=== PATIENT | female | born 1950 | race Caucasian/White ===

== ENCOUNTER → 2016-11-24 | Outpatient (CLI) | payer MEDICARE ==
[~2016-11-24] MED LIST: ACET-461 PO; AMLO5TAB2 PO; BNZ40T PO; CALC-80 PO; CALCIUM; CEPH500C PO; CIPR-226 PO; DIPH25TA82 PO; DOXY100C42 PO; GLUC1CAP37 PO; LACT1CAP62 PO; LEVO125T6 PO; LEVO137T17 PO; METR500T PO; OMEP20CA12 PO; SIMV20TA3 PO; SIMV40TA4 PO; SIMVAST; UBID10CA8; UBID1CAP51 PO; UBID200C PO; VITAMIN D; VITAMIN E; Vicodin 5/325 PO; simvastatin
--- NOTE | 2016-11-24 12:14 | Diagnostic Imaging Report ---
PROCEDURE: CT chest without contrast. TECHNIQUE: Multiple contiguous axial images were obtained through the chest without the use of intravenous contrast. INDICATION: Followup pulmonary nodules. COMPARISON: Comparison studies of 12/03/2015 and of 05/2014 are reviewed. FINDINGS: There are pulmonary nodules measuring up to 9 mm (noncalcified) in the right upper lobe and 1.7 cm in the right lower lobe with the right lower lobe nodule demonstrating calcification. There are several other calcified granulomas. This is likely related to prior granulomatous process including the noncalcified right upper lobe pulmonary nodule. There is no significant consolidation or lung mass seen. The heart size is normal. The thoracic aorta is normal in caliber. No mediastinal mass or lymphadenopathy. There are surgical clips seen around the upper mediastinum and in the thyroid bed region. Correlate for presumed prior thyroidectomy and other surgical history. No axillary lymphadenopathy. The osseous structures demonstrate degenerative changes in the mid and lower thoracic spine. Biliary air is noted similar to prior exams. Hypodense lesions in the liver up to 3.3 cm in size similar to prior exam is compatible with benign etiology, possibly hemangiomas. IMPRESSION: Stable right upper lobe and right lower lobe pulmonary nodules likely related to prior granulomatous process. Another followup in 12 months with an unenhanced low-dose protocol CT chest is recommended to prove stability over more than two years. Dictated by: Dictated on workstation # [id number]
== END ==
LOC: RAD 09:31
PROVIDERS: ATTEND Nurse Practitioner Family
DX: R91.8 Other nonspecific abnormal finding of lung field (principal)
CPT/HCPCS: 71250

== ENCOUNTER 2016-12-25 10:44 | Outpatient (RCR) | payer MEDICARE ==
[2016-12-25 11:09] LABS: BASOPHILS # (AUTO) 0.1 10^3/uL (0.0-0.1); BASOPHILS % (AUTO) 2 % (0-10); EOSINOPHILS # (AUTO) 0.4 10^3/uL (0.0-0.3); EOSINOPHILS % (AUTO) 6 % (0-10); LYMPHOCYTES # (AUTO) 1.5 X 10^3 (1.0-4.0); LYMPHOCYTES % (AUTO) 23 % (12-44); MEAN CORPUSCULAR HEMOGLOBIN 28 PG (25-34); MEAN CORPUSCULAR HGB CONC 33 G/DL (32-36); MEAN CORPUSCULAR VOLUME 86 FL (80-99); MEAN PLATELET VOLUME 11.5 FL (7.4-10.4); MONOCYTES # (AUTO) 0.5 X 10^3 (0.0-1.0); MONOCYTES % (AUTO) 8 % (0-12); NEUTROPHILS % (AUTO) 62 % (42-75); PLATELET COUNT 235 10^3/uL (130-400); RED BLOOD COUNT 4.68 10^6/uL (4.35-5.85); RED CELL DISTRIBUTION WIDTH 13.4 % (10.0-14.5); WHITE BLOOD COUNT 6.5 10^3/uL (4.3-11.0)
[2016-12-25 11:49] LABS: ALANINE AMINOTRANSFERASE 24 U/L (0-55); ALBUMIN 3.9 G/DL (3.2-4.5); ANION GAP 10 MMOL/L (5-14); ASPARTATE AMINO TRANSFERASE 19 U/L (5-34); BILIRUBIN,TOTAL 0.5 MG/DL (0.1-1.0); BLOOD UREA NITROGEN 15 MG/DL (7-18); BUN/CREATININE RATIO 18; CALCIUM 9.5 MG/DL (8.5-10.1); CARBON DIOXIDE 24 MMOL/L (21-32); CHLORIDE 107 MMOL/L (98-107); CREATININE SERUM 0.85 MG/DL (0.60-1.30); GFR ESTIMATED > 60; GLUCOSE 166 MG/DL (70-105); POTASSIUM 3.7 MMOL/L (3.6-5.0); SODIUM 141 MMOL/L (135-145); TOTAL PROTEIN 6.8 G/DL (6.4-8.2)
== END 2017-03-25 | disposition home or self-care (01) ==
LOC: ONC 10:44
PROVIDERS: ATTEND Internal Medicine Hematology & Oncology
DX: Z08 Encounter for follow-up examination after completed treatment for malignant neoplasm (principal); Z85.3 Personal history of malignant neoplasm of breast; I12.9 Hypertensive chronic kidney disease with stage 1 through stage 4 chronic kidney disease, or unspecified chronic kidney disease; N18.3 Chronic kidney disease, stage 3 (moderate); R91.1 Solitary pulmonary nodule; E89.0 Postprocedural hypothyroidism; M19.90 Unspecified osteoarthritis, unspecified site; E66.9 Obesity, unspecified; Z68.34 Body mass index [BMI] 34.0-34.9, adult; Z92.3 Personal history of irradiation; Z79.899 Other long term (current) drug therapy
CPT/HCPCS: 36415; 80053; 85025; 99213

== ENCOUNTER → 2017-05-11 | Outpatient (CLI) | payer MEDICARE ==
--- NOTE | 2017-05-11 20:02 | Diagnostic Imaging Report ---
Bilateral screening mammogram 2D views with tomosynthesis. The current study was also evaluated with a Computer Aided Detection (CAD) system. INDICATION: Screening. No current complaints stated on the questionnaire. COMPARISON: 05/09/16 FINDINGS: The breasts are composed of scattered fibroglandular densities. Scarring in the upper outer aspect of the right breast is again noted related to old lumpectomy. Allowing for technique and positional differences, no suspicious change is seen. IMPRESSION: No significant change. ACR BI-RADS Category 2: Benign findings. Result letter will be mailed to the patient. Note: At least 10% of breast cancer is not imaged by mammography. Dictated by: Dictated on workstation # [id number]
== END ==
LOC: RAD 09:40
PROVIDERS: ATTEND Internal Medicine Hematology & Oncology
DX: Z12.31 Encounter for screening mammogram for malignant neoplasm of breast (principal)
CPT/HCPCS: 77067

== ENCOUNTER → 2017-10-02 | Outpatient (CLI) | payer MEDICARE ==
--- NOTE | 2017-10-02 12:11 | Diagnostic Imaging Report ---
INDICATION: Cough and wheezing. TIME OF EXAM: 12:22 PM COMPARISON: Correlation is made with prior study from 06/20/2014. FINDINGS: Chronic mild elevation of the right hemidiaphragm is noted. The lungs are clear. Pulmonary vascularity is normal. No infiltrates are seen. No effusion or pneumothorax is identified. The heart size is stable. IMPRESSION: Stable chest. No acute cardiopulmonary process is detected. Dictated by: Dictated on workstation # [id number]
== END ==
LOC: RAD 11:43
PROVIDERS: ATTEND Family Medicine
DX: R05 Cough (principal)
CPT/HCPCS: 71046

== ENCOUNTER 2017-12-31 10:49 | Outpatient (RCR) | payer MEDICARE ==
[2017-12-31 10:59] LABS: BASOPHILS # (AUTO) 0.1 10^3/uL (0.0-0.1); BASOPHILS % (AUTO) 2 % (0-10); EOSINOPHILS # (AUTO) 0.4 10^3/uL (0.0-0.3); EOSINOPHILS % (AUTO) 5 % (0-10); HEMATOCRIT 42 % (35-52); LYMPHOCYTES # (AUTO) 1.6 X 10^3 (1.0-4.0); LYMPHOCYTES % (AUTO) 23 % (12-44); MEAN CORPUSCULAR HEMOGLOBIN 28 PG (25-34); MEAN CORPUSCULAR HGB CONC 33 G/DL (32-36); MEAN CORPUSCULAR VOLUME 86 FL (80-99); MEAN PLATELET VOLUME 11.4 FL (7.4-10.4); MONOCYTES # (AUTO) 0.5 X 10^3 (0.0-1.0); MONOCYTES % (AUTO) 7 % (0-12); NEUTROPHILS # (AUTO) 4.4 X 10^3 (1.8-7.8); NEUTROPHILS % (AUTO) 63 % (42-75); PLATELET COUNT 264 10^3/uL (130-400); RED BLOOD COUNT 4.95 10^6/uL (4.35-5.85); RED CELL DISTRIBUTION WIDTH 13.6 % (10.0-14.5)
[2017-12-31 11:28] LABS: ALANINE AMINOTRANSFERASE 16 U/L (0-55); ALBUMIN 4.1 GM/DL (3.2-4.5); ALKALINE PHOSPHATASE 33 U/L (40-136); BILIRUBIN,TOTAL 0.5 MG/DL (0.1-1.0); BUN/CREATININE RATIO 19; CALCIUM 9.8 MG/DL (8.5-10.1); CARBON DIOXIDE 21 MMOL/L (21-32); CHLORIDE 109 MMOL/L (98-107); CREATININE SERUM 0.81 MG/DL (0.60-1.30); GFR ESTIMATED > 60; GLUCOSE 125 MG/DL (70-105); SODIUM 142 MMOL/L (135-145); TOTAL PROTEIN 7.3 GM/DL (6.4-8.2)
== END 2018-03-31 | disposition home or self-care (01) ==
LOC: ONC 10:49
PROVIDERS: ATTEND Internal Medicine Hematology & Oncology
DX: Z08 Encounter for follow-up examination after completed treatment for malignant neoplasm (principal); Z85.3 Personal history of malignant neoplasm of breast; I12.9 Hypertensive chronic kidney disease with stage 1 through stage 4 chronic kidney disease, or unspecified chronic kidney disease; N18.3 Chronic kidney disease, stage 3 (moderate); R91.1 Solitary pulmonary nodule; E89.0 Postprocedural hypothyroidism; M19.90 Unspecified osteoarthritis, unspecified site; E66.9 Obesity, unspecified; Z68.34 Body mass index [BMI] 34.0-34.9, adult; Z92.3 Personal history of irradiation; Z79.899 Other long term (current) drug therapy
CPT/HCPCS: 36415; 80053; 85025; 99213

== ENCOUNTER → 2018-05-13 | Outpatient (CLI) | payer MEDICARE ==
--- NOTE | 2018-05-13 18:59 | Diagnostic Imaging Report ---
INDICATION: Routine screening. Comparison is made with prior mammogram from 05/11/2017 and 05/09/2016. 2-D and 3-D bilateral screening mammography was performed with CAD. The current study was also evaluated with a Computer Aided Detection (CAD) system. FINDINGS: Both breasts are heterogeneously dense, limiting the sensitivity of mammography. Postlumpectomy changes in the upper outer right breast are again noted. There is a new density noted in the superior right breast at mid depth best seen on the MLO view. No definite correlate is seen on the CC view. Additional views of this area recommended. The left breast is stable. No suspicious calcifications are seen. The axillae are unremarkable. IMPRESSION: Right breast density. Additional views including spot compression and ML views are recommended for further evaluation. ACR BI-RADS Category 0: Incomplete. (Needs additional imaging evaluation). Result letter will be mailed to the patient. Note: At least 10% of breast cancer is not imaged by mammography. Dictated by: Dictated on workstation # [id number]
== END ==
LOC: RAD 09:46
PROVIDERS: ATTEND Nurse Practitioner Adult Health
DX: Z12.31 Encounter for screening mammogram for malignant neoplasm of breast (principal); C50.411 Malignant neoplasm of upper-outer quadrant of right female breast
CPT/HCPCS: 77067

== ENCOUNTER → 2018-06-02 | Outpatient (CLI) | payer MEDICARE ==
--- NOTE | 2018-06-02 15:00 | Diagnostic Imaging Report ---
INDICATION: Right breast density. Patient presents for additional views. COMPARISON: Recent screening study from 05/13/2018. EXAMINATION: 2D and 3D unilateral right diagnostic mammography was performed including a 90 degree lateral view as well as a spot compression ML view. FINDINGS: There is some persistent mild slightly nodular density in the upper aspect of the right breast, approximately 4 cm from the nipple. No definite correlate was seen on the CC view but there could be a density directly behind the nipple. There are benign calcifications present. IMPRESSION: Persistent small nodular density in upper right breast, 4 cm from the nipple. Further evaluation of this area with ultrasound is recommended. ACR BI-RADS Category 0: Incomplete. (Needs additional imaging evaluation). Result letter will be mailed to the patient. Note: At least 10% of breast cancer is not imaged by mammography. Dictated by: Dictated on workstation # [id number]
--- NOTE | 2018-06-02 15:13 | Diagnostic Imaging Report ---
INDICATION: Abnormal mammogram demonstrating a right breast density. This study is performed for further evaluation. COMPARISON: Correlation is made with the diagnostic mammogram from earlier this same day and the screening mammogram from 05/13/2018. FINDINGS: Sonographic interrogation of the upper and outer aspect of the right breast was performed. There is a small hypoechoic nodule at the 11 o'clock location of the right breast 2 cm from the nipple. This nodule measures 5 mm x 5 mm x 6 mm. This may account for the mammographic density. No internal vascularity is seen. IMPRESSION: Indeterminate 5-6 mm nodule at the 11 o'clock location of the right breast 2 cm from the nipple, perhaps accounting for the density noted mammographically. Breast MRI would be recommended for further evaluation. ACR BI-RADS Category 0: Incomplete. (Needs additional imaging evaluation). Dictated by: Dictated on workstation # [id number]
== END ==
LOC: RAD 13:21
PROVIDERS: ATTEND Nurse Practitioner Adult Health
DX: C50.411 Malignant neoplasm of upper-outer quadrant of right female breast (principal); N63.41 Unspecified lump in right breast, subareolar

== ENCOUNTER → 2018-06-03 | Outpatient (CLI) | payer MEDICARE ==
[2018-06-03 15:26] LABS: BUN/CREATININE RATIO 19; GFR ESTIMATED > 60
== END ==
LOC: LAB 14:40
PROVIDERS: ATTEND Family Medicine
DX: N28.9 Disorder of kidney and ureter, unspecified (principal)
CPT/HCPCS: 36415; 82565; 84520

== ENCOUNTER → 2018-06-05 | Outpatient (CLI) | payer MEDICARE ==
[~2018-06-05] MED LIST changes: +GADOBUTROL 10 MMOL/10 ML (GADAVIST) VIAL IV ONE
--- NOTE | 2018-06-07 11:49 | Diagnostic Imaging Report ---
TECHNIQUE: Utilizing 1.5 Leigh Ann GE magnet, patient was placed in a prone position with 8-channel dual breast coil utilized. Axial STIR precontrasted image and axial T1 fat-sat postcontrast high-resolution images obtained. Sagittal T2-weighted images precontrast, bilaterally, as well. Sagittal vibrant temporal images were obtained pre and post contrast with bolus technique utilized of gadolinium. Images are postcontrast immediately and subsequently for 7 minutes. Pre and post contrasted images are then evaluated with WonderHowTo for evaluation of possible angiogenesis. INDICATION: Abnormal mammogram, personal history of breast cancer. COMPARISON: June 02, 2018, May 13, 2018, May 11, 2017, and May 07, 2015. Additionally, CT of the chest from March 01, 2015, PET/CT from June 27, 2014, and CT of the abdomen from June 19, 2014 also reviewed. FINDINGS: The bilateral breasts demonstrate mild background enhancement. Bilateral breasts demonstrate mild background glandularity. Postsurgical changes of a lumpectomy are again identified within the superior right breast, slightly lateral to the nipple line. 7 mm enhancing mass within the right breast near 12 o'clock corresponds to the lumpectomy cavity, which has decreased over prior mammograms. Three foci of enhancement are identified about the lumpectomy cavity. Two of these are seen within 5 mm of the lumpectomy cavity superolaterally. These are ovoid with circumscribed margins. These demonstrate progressive kinetics. The third asymmetry is slightly superomedial to the lumpectomy cavity by approximately 1 cm. This as well is ovoid with progressive kinetics. No additional suspicious mass or non-mass enhancement within the right breast. Small amount of enhancement is seen within the skin of the right breast near 12 o'clock, which is felt to be postsurgical in nature. No definite enhancing mass to correspond to previously questioned abnormality on mammography and ultrasound. A few scattered foci of enhancement are seen within the left breast without suspicious enhancing mass or non-mass enhancement. No significant axillary or internal mammary adenopathy. Rounded 9 mm enhancing lesion within the left aspect of the sternum is present. This appears unchanged from prior CT of the chest from 2014, therefore, this is benign. Lobulated 4.5 cm T2 hyperintense mass within the dome of the liver. This has increased in size since the prior examinations. No definite enhancement. Hiatal hernia is present. IMPRESSION: No MRI abnormality to correspond to the mammographic or sonographic abnormality. As the sonographic abnormality may correspond to mammographic abnormality though is not a definitive correlate, though the mammographic abnormality does appear to be a change from the prior examination, the mammographic abnormality is suspicious of malignancy. Therefore, stereotactic/tomographic guided biopsy is recommended for further evaluation. No evidence of malignancy within the left breast. Postsurgical changes within the superior right breast are identified. Adjacent enhancing foci are present which are likely postsurgical in nature and felt to be benign. Lobulated T2 hyperintensity within the dome of the liver, having increased in size since 2014. This is favored to relate to hemangioma. Prior PET/CT demonstrated no associated hypermetabolic activity. Hiatal hernia. BI-RADS Category 4: Suspicious of malignancy, biopsy is recommended. FOLLOWUP: Recommend stereotactic/tomographic guided biopsy of the mammographic abnormality within the right breast at 11-12 o'clock. Dictated by: Dictated on workstation # [id number]
== END ==
LOC: RAD 10:48
PROVIDERS: ATTEND Family Medicine
DX: K44.9 Diaphragmatic hernia without obstruction or gangrene (principal); R92.8 Other abnormal and inconclusive findings on diagnostic imaging of breast; Z98.890 Other specified postprocedural states; Z85.3 Personal history of malignant neoplasm of breast
CPT/HCPCS: 77059

== ENCOUNTER → 2018-06-21 | Outpatient (CLI) | payer MEDICARE ==
[~2018-06-21] VITALS: Ht 172.7 cm; Wt 86.2 kg
[~2018-06-21] MED LIST changes: -GADOBUTROL 10 MMOL/10 ML (GADAVIST) VIAL IV ONE; +LIDOCAINE 1% INJ 20 ML 20 ML VIAL INJ ONE
--- NOTE | 2018-06-21 10:52 | Diagnostic Imaging Report ---
INDICATION: Right breast density. Patient presents for stereotactic biopsy. TECHNIQUE: The patient was brought to the stereotactic suite and positioned in the unit in a sitting upright position. The right breast was positioned lateral medial. Imaging of the right breast was performed. The nodular density in the superior portion of the right breast at mid depth was stereotactically targeted. The breast was then prepped and draped in the usual sterile fashion. A small amount of 1% lidocaine was utilized for local anesthesia. An 8 gauge needle was advanced per stereotactic coordinates. A total of 4 marker clips was then deployed. The needle was removed and hemostasis was obtained using manual compression. Followup mammography imaging in the CC and ML plane demonstrates a clip in the mid right breast in the upper central portion. The patient tolerated the procedure well. IMPRESSION: Successful stereotactic biopsy of the nodular density in the right breast superiorly and slightly laterally. The Pathology results are currently pending. Dictated by: Dictated on workstation # [id number]
== END ==
LOC: RAD 09:15
PROVIDERS: ATTEND Nurse Practitioner Adult Health
DX: C50.411 Malignant neoplasm of upper-outer quadrant of right female breast (principal)
CPT/HCPCS: 19081; 88305; 88360

== ENCOUNTER → 2018-07-06 | Outpatient (CLI) | payer MEDICARE ==
[~2018-07-06] MED LIST changes: -LIDOCAINE 1% INJ 20 ML 20 ML VIAL INJ ONE
--- NOTE | 2018-07-06 12:57 | Diagnostic Imaging Report ---
EXAMINATION: PET/CT INDICATION: Breast cancer TECHNIQUE: PET/CT imaging was obtained from the base of the skull through the pelvis after the administration of 12.5 mCi of F-[address] imaging was utilized for localization and attenuation correction purposes. The low energy CT utilized for attenuation correction is not considered to be of high enough spatial resolution to allow in and of itself a separate anatomical analysis. The previous PET/CT exam performed on 06/27/2014 noted an intensely hypermetabolic right parotid mass measuring 2.7 CM. That mass is no longer evident on this study. There are a few small nodes posterior to the right parotid bed. The largest of these nodes measures 1.3 CM and has a maximum SUV of 2.5. These nodes are nonspecific in appearance however. The patient underwent a recent biopsy of the right breast and a diagnosis of invasive breast carcinoma was established. On this exam there does appear to be a stereotactic clip in the biopsy site. The maximum SUV in this area is only 1.6 however. There are few small slightly hypermetabolic nodes involving the right hilum and the mediastinum. The most intense of these nodes measures approximately 1 CM in size and is located in the superior mediastinum on the right at the level of the azygos vein. This has a maximum SUV of approximately 4.3. The other nodes involving the right hilum have SUV values in the 3.7-4.1 range. There is a 2.5 CM low density nodule in the dome of the right lobe of the liver. This finding was present on the prior PET/CT exam and did not appear to be hypermetabolic. There is still no hypoechoic activity associated with this lesion on this exam. There is another larger 7 x 3.5 CM area of diminished density in the right lobe of the liver. This does seem to have increased in size since the prior exam when it measured approximately 1.9 x 2.7 CM. There is no hypermetabolic activity associated with either of these findings. If further evaluation is desired, then CTA of the abdomen and pelvis with hemangioma protocol would be recommended. There is no other hypermetabolic activity to suggest the presence of neoplasm. The uterus is enlarged and there are multiple calcifications along the left lateral aspect of uterine body/fundus. These may be related to fibroid formation. The calcified nodule in the right lung base seen on the prior study is again evident and no different. There is also a small 8.4 mm nodule in the right upper lung. This also stable compared to the prior exam. Impression: 1. The area of hypermetabolic activity involving the right parotid gland seen previously is no longer evident. Correlation with the patient's surgical history would be Recommended. 2. There are post biopsy changes involving the right breast but there is no hypermetabolic activity in this area to suggest malignancy. 3. The areas of increased uptake in the superior mediastinum on the right and in the right hilum are suspicious but not conclusive for metastatic disease. 4. There is no other hypermetabolic activity to suggest the presence of neoplasm. 5. The rounded areas of low density in the right lobe of the Thyroid seen on the prior exam are of uncertain etiology although unlikely related to neoplasm. Recommendations as above. 6. The uterus is enlarged and there appear to be multiple calcified fibroid. Dictated by: Dictated on workstation # [id number]
== END ==
LOC: RAD 08:01
PROVIDERS: ATTEND Internal Medicine Hematology & Oncology
DX: C50.411 Malignant neoplasm of upper-outer quadrant of right female breast (principal); N85.2 Hypertrophy of uterus

== ENCOUNTER 2018-08-05 05:36 | Outpatient (CLI) | payer MEDICARE ==
[~2018-08-05] VITALS: Ht 172.7 cm; Wt 86.2 kg
[2018-08-05] MEDS ORDERED: LORA10TA7 PO (09:57)
[2018-08-05] MEDS ORDERED: OLME40TA12 PO (09:57)
[2018-08-05] MEDS ORDERED: UBID1CAP53 PO (09:57)
[2018-08-05] MEDS ORDERED: NAPR-915 PO (09:57)
[2018-08-05] MEDS ORDERED: ALPR0.25 PO (09:57)
[2018-08-05] MEDS ORDERED: ATOR10TA66 PO (09:57)
[2018-08-05] MEDS ORDERED: AMLO5TAB7 PO (09:57)
[2018-08-05] MEDS ORDERED: OMEP20CA12 PO (09:57)
[2018-08-05] MEDS ORDERED: LEVO150T6 PO (09:57)
[2018-08-05] MEDS ORDERED: LETR2.5T PO (09:57)
[2018-08-05] MEDS ORDERED: GLUC1CAP37 PO (09:57)
[2018-08-06] MEDS ORDERED: MONT10TA21 PO (10:12)
== END 2018-08-05 09:59 | disposition home or self-care (01) ==
LOC: PREOP 05:36
PROVIDERS: ATTEND Surgery
DX: Z01.818 Encounter for other preprocedural examination (principal)

== ENCOUNTER 2018-08-11 10:16 | Day surgery (SDC) | payer MEDICARE ==
--- NOTE | 2018-08-06 10:18 | NUR ---
HAD A LIST FAXED OVER FROM [facility]. I CALLED AND WENT OVER IT WITH THE PATIENT AND SHE VERIFIED HOW SHE TAKES THEM. [facility]ONS FILLED: 07-16-18 FEMARA 2.5MG DAILY #30 07-12-18 LEVOTHYROXINE 150MCG DAILY #90 07-12-18 NAPROXEN 500MG BID #180 07-09-18 LIPITOR 10MG HS #30 07-09-18 XANAX 0.25MG TID #63 06-10-18 AMLODIPINE 5MG DAILY #90 06-01-18 SINGULAIR 10MG DAILY #90 05-27-18 BENICAR 40MG DAILY #60 SHE TAKES THE FOLLOWING OTC: GLUCOSAMINE DAILY LORATADINE DAILY OMEPRAZOLE 20MG DAILY CO Q 10 BID
[~2018-08-11] VITALS: Ht 172.7 cm; Wt 86.4 kg
[~2018-08-11 10:16] MED LIST changes: +ALPR0.25 PO; +AMLO5TAB7 PO; +ATOR10TA66 PO; +LETR2.5T PO; +LEVO150T6 PO; +LORA10TA7 PO; +MONT10TA21 PO; +NAPR-915 PO; +OLME40TA12 PO; +UBID1CAP53 PO
[2018-08-11] MEDS ORDERED: LACTATED RINGERS 1,000 ML IV PRN (10:21)
[2018-08-11] MEDS ORDERED: VANCOMYCIN INJECTION 1,000 MG in NS (IVPB) 250 ML IV ONE (10:30)
--- NOTE | 2018-08-11 10:33 | Progress Note-Pre Operative ---
Pre-Operative Progress Note H&P Reviewed The H&P was reviewed, patient examined and no changes noted. Date Seen by Provider: Jul 28, 2018 Time Seen by Provider: 10:32 Date H&P Reviewed: Aug 11, 2018 Time H&P Reviewed: 10:32 Pre-Operative Diagnosis: Right breast carcinoma SHILO PARSON MD Aug 11, 2018 10:33
[2018-08-11 10:42] VITALS: BP 141/95
[2018-08-11] MEDS ORDERED: fentaNYL INJECTION 100 MCG/2 ML AMP ONE (11:19)
[2018-08-11] MEDS ORDERED: MIDAZOLAM 2 MG/2 ML (VERSED) VIAL ONE (11:19)
[2018-08-11] MEDS ORDERED: DEXAMETHASONE 10 MG/ML (DECADRON) 1 ML VIAL ONE (11:19)
[2018-08-11] MEDS ORDERED: proPOfol 200 MG/20 ML (DIPRIVAN) VIAL IV ONE (11:19)
[2018-08-11] MEDS ORDERED: ONDANSETRON 4 MG/2 ML (SDV) Z0FRAN ONE (11:19)
[2018-08-11] MEDS ORDERED: SEVOFLURANE (ULTANE) 15 ML INHAL SOLN ONE ×7 (11:19→15:08)
[2018-08-11] MEDS ORDERED: LIDOCAINE PF 2% 5 ML (XYLOCAINE) VIAL ONE (11:19)
[2018-08-11] MEDS ORDERED: BUPIVACAINE 0.5% 30 ML (SENSORCAINE) VIAL ONE (11:22)
[2018-08-11] MEDS ORDERED: LACTATED RINGERS 1,000 ML IV SCH (12:41)
[2018-08-11] MEDS ORDERED: ALPRAZolam 0.25 MG (XANAX) TAB PO PRN (12:45)
[2018-08-11] MEDS ORDERED: fentaNYL INJECTION 100 MCG/2 ML AMP IV PRN (12:45)
[2018-08-11] MEDS ORDERED: BUP/EPI 0.5% 1:200,000 (SENSORCAINE) 30 ML VIAL ONE (12:55)
[2018-08-11] MEDS ORDERED: PHENYLEPHRINE 100 MCG/ML 10 ML (ANESTHESIA) SYR ONE (13:27)
[2018-08-11] MEDS ORDERED: GLYCOPYRROLATE 0.2 MG/ML (ROBINUL) 2 ML VIAL ONE (14:16)
--- NOTE | 2018-08-11 14:41 | Operative Report ---
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 She had completed radiation therapy back then. Despite the small size of the current tumor, since further radiation was not feasible, mastectomy was felt to be the reasonable approach. Informed consent was obtained after reviewing the operative details and complications of hematoma, flap necrosis and wound infection. Description of the procedure: She was placed supine on the operative table and general anesthesia induced. A gram of vancomycin was administered intravenously as prophylaxis against wound infection. Sequential compression devices were placed around her legs, to minimize the risk of venous thrombosis. Right breast was prepared and draped in the usual sterile manner. An elliptical incision was made, incorporating the nipple-areolar complex and flaps were raised, superiorly to the level of the clavicle and inferiorly to the costal margin.. Breast tissue was excised down to the pectoralis fascia using Harmonic scalpel. The perforating branches of the internal mammary artery were controlled using a combination of ligaclips and Harmonic scalpel. The area was irrigated with saline and a 15 Turkish Boris-Zamorano drain left under the flaps, being secured using 2-0 silk sutures. The incision was then closed using 3-0 Vicryl for the dermal layer and 4-0 Vicryl for skin, in a subcuticular fashion. Steri-Strips and a non-adherent dressing were then applied. She tolerated the procedure well, was extubated in the operating room and taken to the recovery room in a stable condition. Findings of the Procedure see operative report Allergies and Home Medications Allergies Coded Allergies: Penicillins (Unverified Allergy, Unknown, 08/11/18) lactose (Verified Allergy, Unknown, 08/05/18) Home Medications Alprazolam 0.25 Mg Tablet, 0.25 MG PO TID PRN for ANXIETY, (Reported) Amlodipine Besylate 5 Mg Tablet, 5 MG PO DAILY, (Reported) Atorvastatin Calcium 10 Mg Tablet, 10 MG PO HS, (Reported) Glucosa Tariq 2Kcl/Chondroitin Tariq 1 Each Capsule, 1 CAP PO DAILY, (Reported) Letrozole 2.5 Mg Tab, 2.5 MG PO DAILY, (Reported) Levothyroxine Sodium 150 Mcg Tablet, 150 MCG PO DAILY, (Reported) Loratadine 10 Mg Tablet, 10 MG PO DAILY, (Reported) Montelukast Sodium 10 Mg Tablet, 10 MG PO HS, (Reported) Naproxen 500 Mg Tablet, 500 MG PO Q12H, (Reported) Olmesartan Medoxomil 40 Mg Tablet, 40 MG PO DAILY, (Reported) Omeprazole 20 Mg Capsule.dr, 20 MG PO DAILY, (Reported) Ubidecarenone/Vit E Acetate 1 Each Capsule, 100 MG PO BID, (Reported) Patient Home Medication List Home Medication List Reviewed: Yes SHILO PARSON MD Aug 11, 2018 14:40
[2018-08-11] MEDS ORDERED: ACHD5005 PO (14:42)
--- NOTE | 2018-08-11 14:43 | Discharge Inst-Simple/Standard ---
Discharge Inst-Standard Discharge Medications New, Converted or Re-Newed RX: RX on Chart Patient Instructions/Follow Up Plan of Care/Instructions/FU: please educate on managing JC at home and have her document output on a 24-hour basis quite accurately. Activity as Tolerated: Yes Discharge Diet: No Restrictions SHILO PARSON MD Aug 11, 2018 14:43
[2018-08-11] MEDS ORDERED: ENOX40DI13 SQ (14:44)
--- OUTSIDE RECORDS SUMMARY | 2018-08-11 14:53 | XMS REPORT | Clinical Summary ---
Author Author [facility] Organization [facility] Address Unknown Phone Unavailable Care Team Providers Care Watch Crystal Cutter Name Role Phone Joselo Jackson MD Unavailable Zelalem Carey DO PCP Ayala Darnell RN Unavailable Unavailable Yeimi Mooney RN Unavailable Unavailable Franca Tim RN Unavailable Unavailable Pedro Luis Benjamin PA-C Unavailable Eran Soto MD Unavailable Jessica Boston LPN Unavailable Unavailable Source Comments Some departments are not documenting in the electronic medical record. If you do not see the information that you expected, contact Release of Information in the Health Information Management department at [phone] for further assistance in locating additional records.[facility] Allergies Comments Active Allergy Reactions Severity Noted Date Penicillin G UNKNOWN 12/08/2013 Medications End Date Status Medication Sig Dispensed Refills Start Date Active benazepril (LOTENSIN) 40 Take 40 mg by 0 mg tablet mouth daily. Active simvastatin (ZOCOR) 20 mg Take 20 mg by 0 tablet mouth at bedtime daily. Active GLUCOSAM SUL NA/CHONDR AGUAYO Take 2 Tabs 0 A NA (GLUCOSAMINE & by mouth CHONDROIT SUL.NA PO) daily. Active OMEPRAZOLE PO Take 20 mg by 0 mouth as Needed. Active CALCIUM CARBONATE/VITAMIN Take 500 mg 0 D2 (CALCIUM + VITAMIN D by mouth PO) twice daily. Active lactobacillus rhamnosus Take 1 Cap by 0 (GG) (CULTURELLE) 10 mouth daily. billion cell cap Active coQ10 (ubiquinol) 100 mg Take 100 mg 0 cap by mouth twice daily. Active amLODIPine (NORVASC) 5 mg Take 5 mg by 0 tablet mouth daily. Active VITAMIN E (DL,TOCOPHERYL Take by 0 ACET) (VITAMIN E (DL, mouth. ACETATE) PO) Active loratadine 10 mg cap Take by 0 mouth daily. Active levothyroxine (SYNTHROID) 137 mcg 90 Tab 1 137 mcg tablet daily. 6 Active naproxen (NAPROSYN) 500 Take 500 mg 0 mg tablet by mouth daily. Take with food. Active LACTASE (LACTAID PO) Take by 0 mouth as Needed. 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 Overview: Microcarcinoma Resolved Problems Problem Noted Date Resolved Date Thyroid goiter 12/08/2013 07/13/2014 Parotid neoplasm 12/08/2013 07/13/2014 Family History Medical History Relation Name Comments Cancer-Colon Father Heart Attack Father Hypertension Father Cancer-Breast Mother Relation Name Status Comments Father Mother Social History Date Tobacco Use Types Packs/Day Years Used Quit: 07/27/1968 Former Smoker Cigarettes 0.1 2 Smokeless Tobacco: Never Used Comments: "3cigs/day socially" Alcohol Use Drinks/Week oz/Week Comments Yes 1 Glasses of 0.6 Rarely wine Sex Assigned at Date Recorded Not on file Industry Job Start Date Occupation Not on file Not on file Not on file Travel End Travel History Travel Start No recent travel history available. Last Filed Vital Signs Time Taken Vital Sign Reading 05/08/2016 4:00 PM CDT Blood Pressure 140/90 05/08/2016 3:22 PM CDT Pulse 84 07/06/2014 8:03 AM QA [employer] Temperature 36.6 C (97.9 F) - Respiratory Rate - 07/06/2014 8:03 AM QA [employer] Oxygen Saturation 94% - Inhaled Oxygen - Concentration 05/08/2016 3:22 PM CDT Weight 105.5 kg (232 lb 9.6 oz) 05/08/2016 3:22 PM CDT Height 172.7 cm (5' 8") 05/08/2016 3:22 PM CDT Body Mass Index 35.37 Plan of Treatment Health Maintenance Due Date Last Done Comments HEPATITIS C SCREENING 1949 PHYSICAL (COMPREHENSIVE) 1956 EXAM DTAP/TDAP VACCINES (1 - 1967 Tdap) BREAST CANCER SCREENING 1989 COLORECTAL CANCER 1999 SCREENING SHINGLES RECOMBINANT 1999 VACCINE (1 of 2) OSTEOPOROSIS 2014 SCREENING/MONITORING PNEUMONIA (PCV13/PPSV23) 2014 VACCINES (1 of 2 - PCV13) INFLUENZA VACCINE 02/24/2018 05/16/2013 (Previously completed) Results Not on filefrom Last 3 Months Insurance Payer Benefit Subscriber ID Type Phone Address Plan / Group MEDICARE MEDICARE xxxxxxxxxx Medicare PART A AND B Advance Directives Patient has advance care planning documents, and code status on file. For more information, please contact: [facility] [address] [place] [address] Date Inactivated Comments Code Status Date Activated 07/06/2014 10:40 AM Full Code 07/05/2014 5:47 PM Provider has discussed Code Status No, discussion not w/Patient or Family? necessary based on Dx 01/18/2014 4:28 PM Full Code 01/17/2014 2:47 PM Provider has discussed Code Status No, more discussion w/Patient or Family? needed
--- OUTSIDE RECORDS SUMMARY | 2018-08-11 14:55 | XMS REPORT | Continuity of Care Document ---
Author Author [facility] Organization [facility] Address Unknown Phone Unavailable Allergies Active Description Code Type Severity Reaction Onset Reported/Identified Relationship to Patient Clinical Status Yes Penicillins [id number] Drug Allergy Unknown N/A 06/19/2014 Yes lactose [id number] Drug Allergy Unknown N/A 08/05/2018 Medications There is no data. Problems Date Dx Coded Attending Type Code Diagnosis Diagnosed By 09/15/2010 Ot 276.8 09/15/2010 Ot 401.9 09/15/2010 Ot 786.59 09/15/2010 Ot V58.69 06/19/2014 Ot 174.9 06/19/2014 Ot 174.9 06/19/2014 Ot V15.3 06/19/2014 Ot V58.69 06/19/2014 Ot V87.41 06/19/2014 Ot 174.9 06/19/2014 Ot V07.4 06/19/2014 Ot V15.3 06/19/2014 Ot V82.81 06/19/2014 Ot V87.41 06/19/2014 Ot 174.9 06/19/2014 Ot 733.90 06/19/2014 Ot V58.69 06/19/2014 Ot 174.9 06/19/2014 Ot V76.11 06/19/2014 Ot 272.4 06/19/2014 Ot V10.3 06/19/2014 Ot V58.69 06/19/2014 Ot V67.1 06/19/2014 Ot V67.2 06/19/2014 Ot 174.9 06/19/2014 Ot V76.11 06/19/2014 Ot 789.00 06/19/2014 Ot 789.00 06/19/2014 Ot 790.5 06/19/2014 Ot 789.00 06/19/2014 Ot V10.3 06/19/2014 Ot V58.69 06/19/2014 Ot V67.1 06/19/2014 Ot V67.2 06/19/2014 Ot 174.9 06/19/2014 Ot V45.89 06/19/2014 Ot V76.11 06/19/2014 Ot 174.9 06/19/2014 ANNELZAID JEAN N Ot 174.9 06/19/2014 ZAID UP N Ot V76.11 06/19/2014 DARIANA MAYEN MD Ot 246.8 06/19/2014 TIARRA ORTEZ, DARIANA P Ot 784.2 06/19/2014 DARIANA MAYEN MD Ot 785.6 06/19/2014 ANNELZAID JEAN N Ot 174.9 06/19/2014 ANNELZAID JEAN N Ot 241.0 06/19/2014 ANNELZAID JEAN N Ot 403.90 06/19/2014 ANNELZAID JEAN N Ot 585.3 06/19/2014 ANNELZAID JEAN N Ot V58.69 06/19/2014 ANNELZAID JEAN N Ot 174.9 06/19/2014 ZAID UP N Ot V76.11 06/24/2014 JUSTO MCDERMOTT DO Ot 239.89 NEOPLASMS OF UNSPECIFIED NATURE, OTHER S 06/24/2014 JUSTO MCDERMOTT DO Ot 244.0 POSTSURGICAL HYPOTHYROID 06/24/2014 JUSTO MCDERMOTT DO Ot 271.3 DISACCHARIDASE DEF/MALAB 06/24/2014 JUSTO MCDERMOTT DO Ot 272.0 PURE HYPERCHOLESTEROLEM 06/24/2014 JUSTO MCDERMOTT DO Ot 401.9 HYPERTENSION NOS 06/24/2014 JUSTO MCDERMOTT DO Ot 530.81 ESOPHAGEAL REFLUX 06/24/2014 JUSTO MCDERMOTT DO Ot 557.9 VASC INSUFF INTEST NOS 06/24/2014 JUSTO MCDERMOTT DO Ot 562.10 DIVERTICULOSIS COLON (W/O MENT OF HEMORR 06/24/2014 JUSTO MCDERMOTT DO Ot 573.8 LIVER DISORDERS NEC 06/24/2014 JUSTO MCDERMOTT DO Ot 793.11 SOLITARY PULMONARY NODULE 06/24/2014 JUSTO MCDERMOTT DO Ot V10.3 HX OF BREAST MALIGNANCY 06/24/2014 JUSTO MCDERMOTT DO Ot V15.3 HX OF IRRADIATION 06/24/2014 JUSTO MCDERMOTT DO Ot V15.82 HISTORY OF TOBACCO USE 06/24/2014 JUSTO MCDERMOTT DO Ot V16.0 FAMILY HX-GI MALIGNANCY 06/24/2014 JUSTO MCDERMOTT DO Ot V87.41 PERSONAL HISTORY OF ANTINEOPLASTIC CHEMO 07/26/2014 RALPH SILVEIRA DO Ot 573.8 07/26/2014 RALPH SILVEIRA DO Ot 784.2 07/26/2014 RALPH SILVEIRA DO Ot 793.11 08/07/2014 SHILO PARSON MD Ot 211.3 BENIGN NEOPLASM LG BOWEL 08/07/2014 BLANK ORTEZ, SHILO Edwards Ot 455.3 EXT HEMORRHOID W/O COMPL 08/07/2014 SHILO PARSON MD Ot 557.9 VASC INSUFF INTEST NOS 08/07/2014 SHILO PARSON MD Ot 562.10 DIVERTICULOSIS COLON (W/O MENT OF HEMORR 11/08/2014 SHILO PARSON MD Ot 682.2 CELLULITIS OF TRUNK 11/08/2014 SHILO PARSON MD Ot V74.8 SCREEN-BACTERIAL DIS NEC 11/15/2014 SHILO PARSON MD Ot V72.84 11/15/2014 SHILO PARSON MD Ot V72.84 12/15/2014 ELADIO ORTEZ, DARIANA Anglin Ot 305.1 TOBACCO USE DISORDER 12/15/2014 DARIANA HENDRICKS MD Ot 401.9 HYPERTENSION NOS 12/15/2014 DARIANA HENDRICKS MD Ot 682.2 CELLULITIS OF TRUNK 12/15/2014 DARIANA HENDRICKS MD Ot 998.83 NON-HEALING SURG WOUND 01/17/2015 ZAID UP Ot 174.9 01/17/2015 ZAID UP N Ot 403.90 01/17/2015 ANNELZAID JEAN N Ot 585.3 01/17/2015 ANNELZAID JEAN N Ot V58.69 01/19/2015 ANNELZAID JEAN N Ot 174.9 01/19/2015 ANNELZAID JEAN N Ot 403.90 01/19/2015 ANNELZAID JEAN N Ot 585.3 01/19/2015 ZAID UP N Ot V58.69 04/03/2015 RALPH SILVEIRA DO Ot 174.9 04/03/2015 RALPH SILVEIRA DO Ot 278.00 04/03/2015 RALPH SILVEIRA DO Ot 793.11 04/12/2015 RALPH SILVEIRA DO Ot 174.9 04/12/2015 RALPH SILVEIRA DO Ot 278.00 04/12/2015 RALPH SILVEIRA DO Ot 793.11 05/31/2015 Ot C50.919 12/05/2015 EVY PADRON PATTERN STAMPER Ot R91.1 SOLITARY PULMONARY NODULE 12/27/2015 EVY PADRON PATTERN STAMPER Ot R91.1 SOLITARY PULMONARY NODULE 01/04/2016 EVY PADRON PATTERN STAMPER Ot R91.1 SOLITARY PULMONARY NODULE 02/14/2016 ANNEL, GABEAN N Ot C50.919 MALIGNANT NEOPLASM OF UNSP SITE OF UNSPE 02/21/2016 ANNEL, BOBAN N Ot C50.919 MALIGNANT NEOPLASM OF UNSP SITE OF UNSPE 03/25/2016 ANNEL, BOBAN N Ot C50.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 03/25/2016 ANNEL GABEAN N Ot C50.919 MALIGNANT NEOPLASM OF UNSP SITE OF UNSPE 03/25/2016 ANNEL, BOBAN N Ot E66.9 OBESITY, UNSPECIFIED 03/25/2016 ANNEL, BOBAN N Ot I12.9 HYPERTENSIVE CHRONIC KIDNEY DISEASE W ST 03/25/2016 ANNEL, BOBAN N Ot N18.3 CHRONIC KIDNEY DISEASE, STAGE 3 (MODERAT 03/25/2016 ANNEL, BOBAN N Ot R91.1 SOLITARY PULMONARY NODULE 03/25/2016 ANNEL, BOBAN N Ot Z68.35 BODY MASS INDEX (BMI) 35.0-35.9, ADULT 03/25/2016 ANNEL BOBAN N Ot Z79.899 OTHER CORRECTION (CURRENT) DRUG THERAPY 03/27/2016 ANNEL BOBAN N Ot C50.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 03/27/2016 ANNEL BOBAN N Ot E66.9 OBESITY, UNSPECIFIED 03/27/2016 ANNEL, BOBAN N Ot I12.9 HYPERTENSIVE CHRONIC KIDNEY DISEASE W ST 03/27/2016 ANNEL BOBAN N Ot N18.3 CHRONIC KIDNEY DISEASE, STAGE 3 (MODERAT 03/27/2016 ANNEL, BOBAN N Ot R91.1 SOLITARY PULMONARY NODULE 03/27/2016 ANNEL, BOBAN N Ot Z68.35 BODY MASS INDEX (BMI) 35.0-35.9, ADULT 03/27/2016 ZAID UP Ot Z79.899 OTHER CORRECTION (CURRENT) DRUG THERAPY 05/09/2016 Ot 174.9 MALIGN NEOPL BREAST NOS 05/09/2016 Ot V76.11 SCRN MAMMO- HIGH RISK PT, MALIGNANT NEOPL 05/09/2016 Ot 789.00 ABDOMINAL PAIN, UNSPECIFIED SITE 05/09/2016 Ot 789.00 ABDOMINAL PAIN, UNSPECIFIED SITE 05/09/2016 Ot 790.5 ABN SERUM ENZY LEVEL NEC 05/09/2016 Ot 789.00 ABDOMINAL PAIN, UNSPECIFIED SITE 05/09/2016 Ot V10.3 HX OF BREAST MALIGNANCY 05/09/2016 Ot V58.69 OTH MED,LT, CURRENT USE 05/09/2016 Ot V67.1 RADIOTHERAPY FOLLOW-UP 05/09/2016 Ot V67.2 CHEMOTHERAPY FOLLOW-UP 05/09/2016 Ot 174.9 MALIGN NEOPL BREAST NOS 05/09/2016 Ot V45.89 POSTSURGICAL STATES NEC 05/09/2016 Ot V76.11 SCRN MAMMO- HIGH RISK PT, MALIGNANT NEOPL 05/09/2016 Ot 174.9 MALIGN NEOPL BREAST NOS 05/09/2016 ZAID UP Ot 174.9 MALIGN NEOPL BREAST NOS 05/09/2016 ZAID UP Ot V76.11 SCRN MAMMO-HIGH RISK PT, MALIGNANT NEOPL 05/09/2016 TIARRA ORTEZ, DARIANA P Ot 246.8 DISORDERS OF THYROID NEC 05/09/2016 TIARRA ORTEZ, DARIANA Diaz Ot 784.2 SWELLING IN HEAD NECK 05/09/2016 TIARRA ORTEZ, DARIANA Diaz Ot 785.6 ENLARGEMENT LYMPH NODES 05/09/2016 ZAID UP Ot 174.9 MALIGN NEOPL BREAST NOS 05/09/2016 ZAID UP Ot 241.0 NONTOX UNINODULAR GOITER 05/09/2016 ZAID UP Ot 403.90 HYPTNSV CHR KID DIS, UNSPEC, W CHR KD ST 05/09/2016 ZAID UP Ot 585.3 CHRONIC KIDNEY DISEASE, STAGE III (MODER 05/09/2016 ZAID UP Ot V58.69 OTH MED,LT,CURRENT USE 05/09/2016 ANNEL, BOBAN N Ot 174.9 MALIGN NEOPL BREAST NOS 05/09/2016 ZAID UP N Ot V76.11 SCRN MAMMO-HIGH RISK PT, MALIGNANT NEOPL 05/09/2016 RALPH SILVEIRA DO Ot 573.8 LIVER DISORDERS NEC 05/09/2016 RALPH SILVEIRA DO Ot 784.2 SWELLING IN HEAD NECK 05/09/2016 RALPH SILVEIRA DO Ot 793.11 SOLITARY PULMONARY NODULE 05/09/2016 BLANK ORTEZ, SHILO Edwards Ot V72.84 EXAM PRE-OPERATIVE NOS 05/09/2016 RALPH SILVEIRA DO Ot 174.9 MALIGN NEOPL BREAST NOS 05/09/2016 RALPH SILVEIRA DO Ot 278.00 OBESITY, NOS 05/09/2016 RALPH SILVEIRA DO Ot 793.11 SOLITARY PULMONARY NODULE 05/09/2016 ZAID UP N Ot 174.9 MALIGN NEOPL BREAST NOS 05/09/2016 ZAID UP Ot 403.90 HYPTNSV CHR KID DIS, UNSPEC, W CHR KD ST 05/09/2016 ZAID UP N Ot 585.3 CHRONIC KIDNEY DISEASE, STAGE III (MODER 05/09/2016 ZAID UP N Ot V58.69 OTH MED,LT,CURRENT USE 05/09/2016 Ot C50.919 MALIGNANT NEOPLASM OF UNSP SITE OF UNSPE 05/09/2016 EVY PADRON APRN Ot R91.1 SOLITARY PULMONARY NODULE 05/09/2016 ZAID UP Ot C50.919 MALIGNANT NEOPLASM OF UNSP SITE OF UNSPE 05/09/2016 ZAID UP Ot Z12.31 ENCNTR SCREEN MAMMOGRAM FOR MALIGNANT NE 05/09/2016 ZAID UP N Ot Z12.31 ENCNTR SCREEN MAMMOGRAM FOR MALIGNANT NE 05/12/2016 ANNELZAID JEAN N Ot Z12.31 ENCNTR SCREEN MAMMOGRAM FOR MALIGNANT NE 05/13/2016 ZAID UP N Ot Z12.31 ENCNTR SCREEN MAMMOGRAM FOR MALIGNANT NE 05/14/2016 Ot C73 MALIGNANT NEOPLASM OF THYROID GLAND 05/14/2016 Ot C73 MALIGNANT NEOPLASM OF THYROID GLAND 05/15/2016 ZAID UP Ot Z12.31 ENCNTR SCREEN MAMMOGRAM FOR MALIGNANT NE 05/21/2016 ZAID UP Ot Z12.31 ENCNTR SCREEN MAMMOGRAM FOR MALIGNANT NE 2016 Ot C73 MALIGNANT NEOPLASM OF THYROID GLAND 06/13/2016 Ot C73 MALIGNANT NEOPLASM OF THYROID GLAND 11/24/2016 EVY PADRON PATTERN STAMPER Ot R91.1 SOLITARY PULMONARY NODULE 11/24/2016 EVY PADRON PATTERN STAMPER Ot R91.1 SOLITARY PULMONARY NODULE 11/24/2016 EVY PADRON PATTERN STAMPER Ot R91.1 SOLITARY PULMONARY NODULE 11/25/2016 VITOEVY LEON PATTERN STAMPER Ot R91.8 OTHER NONSPECIFIC ABNORMAL FINDING OF STEVEN 12/17/2016 VITOEVY LEON PATTERN STAMPER Ot R91.8 OTHER NONSPECIFIC ABNORMAL FINDING OF STEVEN 12/24/2016 EVY PADRON PATTERN STAMPER Ot R91.8 OTHER NONSPECIFIC ABNORMAL FINDING OF STEVEN 12/26/2016 ZAID UP Ot E66.9 OBESITY, UNSPECIFIED 12/26/2016 ZAID UP Ot E89.0 POSTPROCEDURAL HYPOTHYROIDISM 12/26/2016 ZAID UP Ot I12.9 HYPERTENSIVE CHRONIC KIDNEY DISEASE W ST 12/26/2016 ZAID UP Ot M19.90 UNSPECIFIED OSTEOARTHRITIS, UNSPECIFIED 12/26/2016 ZAID UP Ot N18.3 CHRONIC KIDNEY DISEASE, STAGE 3 (MODERAT 12/26/2016 ZAID UP Ot R91.1 SOLITARY PULMONARY NODULE 12/26/2016 ZAID UP Ot Z08 ENCNTR FOR FOLLOW-UP EXAM AFTER TRTMT FO 12/26/2016 ZAID UP Ot Z68.34 BODY MASS INDEX (BMI) 34.0-34.9, ADULT 12/26/2016 ZAID UP Ot Z79.899 OTHER CERTIFIED MEDICAL TECHNICIAN ASSISTANT (CURRENT) DRUG THERAPY 12/26/2016 ZAID UP Ot Z85.3 PERSONAL HISTORY OF MALIGNANT NEOPLASM O 12/26/2016 ZAID UP Ot Z92.3 PERSONAL HISTORY OF IRRADIATION 02/16/2017 ZAID UP Ot E66.9 OBESITY, UNSPECIFIED 02/16/2017 ZIAD UP Ot E89.0 POSTPROCEDURAL HYPOTHYROIDISM 02/16/2017 ZAID UP Ot I12.9 HYPERTENSIVE CHRONIC KIDNEY DISEASE W ST 02/16/2017 ZAID UP N Ot M19.90 UNSPECIFIED OSTEOARTHRITIS, UNSPECIFIED 02/16/2017 ZAID UP N Ot N18.3 CHRONIC KIDNEY DISEASE, STAGE 3 (MODERAT 02/16/2017 ZAID UP N Ot R91.1 SOLITARY PULMONARY NODULE 02/16/2017 ZAID UP N Ot Z08 ENCNTR FOR FOLLOW-UP EXAM AFTER TRTMT FO 02/16/2017 ZAID UP N Ot Z68.34 BODY MASS INDEX (BMI) 34.0-34.9, ADULT 02/16/2017 ZAID UP N Ot Z79.899 OTHER CERTIFIED MEDICAL TECHNICIAN ASSISTANT (CURRENT) DRUG THERAPY 02/16/2017 ZAID UP N Ot Z85.3 PERSONAL HISTORY OF MALIGNANT NEOPLASM O 02/16/2017 ZAID UP N Ot Z92.3 PERSONAL HISTORY OF IRRADIATION 02/20/2017 ZAID UP N Ot E66.9 OBESITY, UNSPECIFIED 02/20/2017 ZAID UP N Ot E89.0 POSTPROCEDURAL HYPOTHYROIDISM 02/20/2017 ZAID UP N Ot I12.9 HYPERTENSIVE CHRONIC KIDNEY DISEASE W ST 02/20/2017 ZAID UP N Ot M19.90 UNSPECIFIED OSTEOARTHRITIS, UNSPECIFIED 02/20/2017 ZAID UP N Ot N18.3 CHRONIC KIDNEY DISEASE, STAGE 3 (MODERAT 02/20/2017 ZAID UP N Ot R91.1 SOLITARY PULMONARY NODULE 02/20/2017 ZAID UP N Ot Z08 ENCNTR FOR FOLLOW-UP EXAM AFTER TRTMT FO 02/20/2017 ZAID UP N Ot Z68.34 BODY MASS INDEX (BMI) 34.0-34.9, ADULT 02/20/2017 ZAID UP N Ot Z79.899 OTHER CORRECTION (CURRENT) DRUG THERAPY 02/20/2017 ANNEL GABEJONELLE N Ot Z85.3 PERSONAL HISTORY OF MALIGNANT NEOPLASM O 02/20/2017 ANNEL GABEJONELLE N Ot Z92.3 PERSONAL HISTORY OF IRRADIATION 03/25/2017 ANNEL GABEJONELLE N Ot E66.9 OBESITY, UNSPECIFIED 03/25/2017 ANNEL GABEJONELLE N Ot E89.0 POSTPROCEDURAL HYPOTHYROIDISM 03/25/2017 ANNEL ZAID N Ot I12.9 HYPERTENSIVE CHRONIC KIDNEY DISEASE W ST 03/25/2017 ZAID UP N Ot M19.90 UNSPECIFIED OSTEOARTHRITIS, UNSPECIFIED 03/25/2017 ZAID UP N Ot N18.3 CHRONIC KIDNEY DISEASE, STAGE 3 (MODERAT 03/25/2017 ZAID UP N Ot R91.1 SOLITARY PULMONARY NODULE 03/25/2017 ZAID UP N Ot Z08 ENCNTR FOR FOLLOW-UP EXAM AFTER TRTMT FO 03/25/2017 ZAID UP N Ot Z68.34 BODY MASS INDEX (BMI) 34.0-34.9, ADULT 03/25/2017 ZAID UP N Ot Z79.899 OTHER CERTIFIED MEDICAL TECHNICIAN ASSISTANT (CURRENT) DRUG THERAPY 03/25/2017 ANNEL ZAID N Ot Z85.3 PERSONAL HISTORY OF MALIGNANT NEOPLASM O 03/25/2017 ANNEL ZAID N Ot Z92.3 PERSONAL HISTORY OF IRRADIATION 03/26/2017 ANNEL ZAID N Ot E66.9 OBESITY, UNSPECIFIED 03/26/2017 ANNEL GABEJONELLE N Ot E89.0 POSTPROCEDURAL HYPOTHYROIDISM 03/26/2017 ZAID UP N Ot I12.9 HYPERTENSIVE CHRONIC KIDNEY DISEASE W ST 03/26/2017 ZAID UP N Ot M19.90 UNSPECIFIED OSTEOARTHRITIS, UNSPECIFIED 03/26/2017 ZAID UP N Ot N18.3 CHRONIC KIDNEY DISEASE, STAGE 3 (MODERAT 03/26/2017 ZAID UP N Ot R91.1 SOLITARY PULMONARY NODULE 03/26/2017 ANNEL GABEJONELLE N Ot Z08 ENCNTR FOR FOLLOW-UP EXAM AFTER TRTMT FO 03/26/2017 ZAID UP Mercedes Ot Z68.34 BODY MASS INDEX (BMI) 34.0-34.9, ADULT 03/26/2017 ZAID UP N Ot Z79.899 OTHER CERTIFIED MEDICAL TECHNICIAN ASSISTANT (CURRENT) DRUG THERAPY 03/26/2017 ANNEL ZAID N Ot Z85.3 PERSONAL HISTORY OF MALIGNANT NEOPLASM O 03/26/2017 ANNEL ZAID N Ot Z92.3 PERSONAL HISTORY OF IRRADIATION 05/11/2017 ANNEL ZAID Long Ot Z12.31 ENCNTR SCREEN MAMMOGRAM FOR MALIGNANT NE 2017 ANNELZAID Ot Z12.31 ENCNTR SCREEN MAMMOGRAM FOR MALIGNANT NE 10/05/2017 GELLENDER DO, JUSTO A Ot R05 COUGH 10/27/2017 GELLENDER DO, JUSTO A Ot R05 COUGH 11/03/2017 GELLENDER DO, JUSTO A Ot R05 COUGH 02/15/2018 ANNELZAID Ot E66.9 OBESITY, UNSPECIFIED 02/15/2018 ANNELZAID N Ot E89.0 POSTPROCEDURAL HYPOTHYROIDISM 02/15/2018 ANNEL, ZAID N Ot I12.9 HYPERTENSIVE CHRONIC KIDNEY DISEASE W ST 02/15/2018 ANNEL, ZAID N Ot M19.90 UNSPECIFIED OSTEOARTHRITIS, UNSPECIFIED 02/15/2018 ANNEL, ZAID N Ot N18.3 CHRONIC KIDNEY DISEASE, STAGE 3 (MODERAT 02/15/2018 ANNELZAID JEAN N Ot R91.1 SOLITARY PULMONARY NODULE 02/15/2018 ANNELZAID JEAN N Ot Z08 ENCNTR FOR FOLLOW-UP EXAM AFTER TRTMT FO 02/15/2018 ZAID UP Ot Z68.34 BODY MASS INDEX (BMI) 34.0-34.9, ADULT 02/15/2018 ZAID UP N Ot Z79.899 OTHER CERTIFIED MEDICAL TECHNICIAN ASSISTANT (CURRENT) DRUG THERAPY 02/15/2018 ZAID UP N Ot Z85.3 PERSONAL HISTORY OF MALIGNANT NEOPLASM O 02/15/2018 ZAID UP N Ot Z92.3 PERSONAL HISTORY OF IRRADIATION 02/17/2018 ZAID UP N Ot E66.9 OBESITY, UNSPECIFIED 02/17/2018 ANNELZAID N Ot E89.0 POSTPROCEDURAL HYPOTHYROIDISM 02/17/2018 ZAID UP N Ot I12.9 HYPERTENSIVE CHRONIC KIDNEY DISEASE W ST 02/17/2018 ANNELZAID N Ot M19.90 UNSPECIFIED OSTEOARTHRITIS, UNSPECIFIED 02/17/2018 ANNEL, ZAID N Ot N18.3 CHRONIC KIDNEY DISEASE, STAGE 3 (MODERAT 02/17/2018 ANNELZAID JEAN N Ot R91.1 SOLITARY PULMONARY NODULE 02/17/2018 ANNELZAID JEAN N Ot Z08 ENCNTR FOR FOLLOW-UP EXAM AFTER TRTMT FO 02/17/2018 ZAID UP N Ot Z68.34 BODY MASS INDEX (BMI) 34.0-34.9, ADULT 02/17/2018 ZAID UP N Ot Z79.899 OTHER CERTIFIED MEDICAL TECHNICIAN ASSISTANT (CURRENT) DRUG THERAPY 02/17/2018 ZAID UP N Ot Z85.3 PERSONAL HISTORY OF MALIGNANT NEOPLASM O 02/17/2018 ZAID UP N Ot Z92.3 PERSONAL HISTORY OF IRRADIATION 03/31/2018 ZAID UP N Ot E66.9 OBESITY, UNSPECIFIED 03/31/2018 ZAID UP N Ot E89.0 POSTPROCEDURAL HYPOTHYROIDISM 03/31/2018 ZAID UP N Ot I12.9 HYPERTENSIVE CHRONIC KIDNEY DISEASE W ST 03/31/2018 ZAID UP N Ot M19.90 UNSPECIFIED OSTEOARTHRITIS, UNSPECIFIED 03/31/2018 ANNELZAID JEAN N Ot N18.3 CHRONIC KIDNEY DISEASE, STAGE 3 (MODERAT 03/31/2018 ZAID UP N Ot R91.1 SOLITARY PULMONARY NODULE 03/31/2018 ZAID UP N Ot Z08 ENCNTR FOR FOLLOW-UP EXAM AFTER TRTMT FO 03/31/2018 ZAID UP N Ot Z68.34 BODY MASS INDEX (BMI) 34.0-34.9, ADULT 03/31/2018 ZAID UP N Ot Z79.899 OTHER CERTIFIED MEDICAL TECHNICIAN ASSISTANT (CURRENT) DRUG THERAPY 03/31/2018 ZAID UP N Ot Z85.3 PERSONAL HISTORY OF MALIGNANT NEOPLASM O 03/31/2018 ZAID UP N Ot Z92.3 PERSONAL HISTORY OF IRRADIATION 04/02/2018 ZAID UP N Ot E66.9 OBESITY, UNSPECIFIED 04/02/2018 ZAID UP N Ot E89.0 POSTPROCEDURAL HYPOTHYROIDISM 04/02/2018 ZAID UP N Ot I12.9 HYPERTENSIVE CHRONIC KIDNEY DISEASE W ST 04/02/2018 ZAID UP N Ot M19.90 UNSPECIFIED OSTEOARTHRITIS, UNSPECIFIED 04/02/2018 ANNELZAID JEAN N Ot N18.3 CHRONIC KIDNEY DISEASE, STAGE 3 (MODERAT 04/02/2018 ANNELZAID JEAN N Ot R91.1 SOLITARY PULMONARY NODULE 04/02/2018 AZID UP N Ot Z08 ENCNTR FOR FOLLOW-UP EXAM AFTER TRTMT FO 04/02/2018 ZAID UP N Ot Z68.34 BODY MASS INDEX (BMI) 34.0-34.9, ADULT 04/02/2018 ZAID UP N Ot Z79.899 OTHER CERTIFIED MEDICAL TECHNICIAN ASSISTANT (CURRENT) DRUG THERAPY 04/02/2018 ZAID UP N Ot Z85.3 PERSONAL HISTORY OF MALIGNANT NEOPLASM O 04/02/2018 ANNEL GABEJONELLE N Ot Z92.3 PERSONAL HISTORY OF IRRADIATION 04/06/2018 ANNEL GABEJONELLE N Ot E66.9 OBESITY, UNSPECIFIED 04/06/2018 ANNEL ZAID N Ot E89.0 POSTPROCEDURAL HYPOTHYROIDISM 04/06/2018 ANNEL ZAID N Ot I12.9 HYPERTENSIVE CHRONIC KIDNEY DISEASE W ST 04/06/2018 ANNELZAID N Ot M19.90 UNSPECIFIED OSTEOARTHRITIS, UNSPECIFIED 04/06/2018 ANNELZAID N Ot N18.3 CHRONIC KIDNEY DISEASE, STAGE 3 (MODERAT 04/06/2018 ANNELZAID N Ot R91.1 SOLITARY PULMONARY NODULE 04/06/2018 ANNEL ZADI N Ot Z08 ENCNTR FOR FOLLOW-UP EXAM AFTER TRTMT FO 04/06/2018 ANNEL GABEJONELLE N Ot Z68.34 BODY MASS INDEX (BMI) 34.0-34.9, ADULT 04/06/2018 ZAID UP N Ot Z79.899 OTHER CORRECTION (CURRENT) DRUG THERAPY 04/06/2018 ZAID UP N Ot Z85.3 PERSONAL HISTORY OF MALIGNANT NEOPLASM O 04/06/2018 ANNEL GABEJONELLE N Ot Z92.3 PERSONAL HISTORY OF IRRADIATION 05/13/2018 ANNELZAID N Ot 174.9 MALIGN NEOPL BREAST NOS 05/13/2018 ZAID UP Ot V76.11 SCRN MAMMO-HIGH RISK PT, MALIGNANT NEOPL 05/13/2018 TIARRA ORTEZ, DARIANA P Ot 246.8 DISORDERS OF THYROID NEC 05/13/2018 DARIANA MAYEN MD P Ot 784.2 SWELLING IN HEAD NECK 05/13/2018 DARIANA MAYEN MD Ot 785.6 ENLARGEMENT LYMPH NODES 05/13/2018 ZAID UP N Ot 174.9 MALIGN NEOPL BREAST NOS 05/13/2018 ZAID UP N Ot 241.0 NONTOX UNINODULAR GOITER 05/13/2018 ZAID UP N Ot 403.90 HYPTNSV CHR KID DIS, UNSPEC, W CHR KD ST 05/13/2018 ANNEL, BOBAN N Ot 585.3 CHRONIC KIDNEY DISEASE, STAGE III (MODER 05/13/2018 ANNELZAID JEAN N Ot V58.69 OTH MED,LT,CURRENT USE 05/13/2018 ANNEL BOBAN N Ot 174.9 MALIGN NEOPL BREAST NOS 05/13/2018 ANNEL, BOBAN N Ot V76.11 SCRN MAMMO-HIGH RISK PT, MALIGNANT NEOPL 05/13/2018 RALPH SILVEIRA DO M Ot 573.8 LIVER DISORDERS NEC 05/13/2018 DERICK SILVEIRA DOSON M Ot 784.2 SWELLING IN HEAD NECK 05/13/2018 DERICK SILVEIRA DOSON M Ot 793.11 SOLITARY PULMONARY NODULE 05/13/2018 BLANK ORTEZ, SHILO Edwards Ot V72.84 EXAM PRE-OPERATIVE NOS 05/13/2018 DERICK SILVEIRA DOSON M Ot 174.9 MALIGN NEOPL BREAST NOS 05/13/2018 DERICK SILVEIRA DOSON M Ot 278.00 OBESITY, NOS 05/13/2018 RALPH SILVEIRA DO M Ot 793.11 SOLITARY PULMONARY NODULE 05/13/2018 ANNEL BOBJONELLE N Ot 174.9 MALIGN NEOPL BREAST NOS 05/13/2018 ANNEL BOBJONELLE N Ot 403.90 HYPTNSV CHR KID DIS, UNSPEC, W CHR KD ST 05/13/2018 ANNEL, BOBAN N Ot 585.3 CHRONIC KIDNEY DISEASE, STAGE III (MODER 05/13/2018 ZAID UP N Ot V58.69 OTH MED,LT,CURRENT USE 05/13/2018 Ot C50.919 MALIGNANT NEOPLASM OF UNSP SITE OF UNSPE 05/13/2018 EVY PADRON APRN Ot R91.1 SOLITARY PULMONARY NODULE 05/13/2018 EVY PADRON PATTERN STAMPER Ot R91.8 OTHER NONSPECIFIC ABNORMAL FINDING OF TSEVEN 05/13/2018 ZAID UP N Ot Z12.31 ENCNTR SCREEN MAMMOGRAM FOR MALIGNANT NE 05/13/2018 Ot C73 MALIGNANT NEOPLASM OF THYROID GLAND 05/13/2018 ZAID UP N Ot Z12.31 ENCNTR SCREEN MAMMOGRAM FOR MALIGNANT NE 05/13/2018 JUSTO MCDERMOTT DO Ot R05 COUGH 05/13/2018 MIGUELANGEL SILVA [employer] MARKETING MANAGER Ot Z12.31 ENCNTR SCREEN MAMMOGRAM FOR MALIGNANT NE 05/13/2018 ZAID UP Ot E66.9 OBESITY, UNSPECIFIED 05/13/2018 ZAID UP Ot E89.0 POSTPROCEDURAL HYPOTHYROIDISM 05/13/2018 ZAID UP Ot I12.9 HYPERTENSIVE CHRONIC KIDNEY DISEASE W ST 05/13/2018 ZAID UP Ot M19.90 UNSPECIFIED OSTEOARTHRITIS, UNSPECIFIED 05/13/2018 ZAID UP Ot N18.3 CHRONIC KIDNEY DISEASE, STAGE 3 (MODERAT 05/13/2018 ZAID UP Ot R91.1 SOLITARY PULMONARY NODULE 05/13/2018 ZIAD UP Ot Z08 ENCNTR FOR FOLLOW-UP EXAM AFTER TRTMT FO 05/13/2018 ZAID UP Ot Z68.34 BODY MASS INDEX (BMI) 34.0-34.9, ADULT 05/13/2018 ZAID UP Ot Z79.899 OTHER CERTIFIED MEDICAL TECHNICIAN ASSISTANT (CURRENT) DRUG THERAPY 05/13/2018 ZAID UP Ot Z85.3 PERSONAL HISTORY OF MALIGNANT NEOPLASM O 05/13/2018 ZAID UP Ot Z92.3 PERSONAL HISTORY OF IRRADIATION 05/17/2018 MIGUELANGEL SILVA [employer] MARKETING MANAGER Ot C50.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 05/17/2018 MIGUELANGEL SILVA [employer] MARKETING MANAGER Ot Z12.31 ENCNTR SCREEN MAMMOGRAM FOR MALIGNANT NE 05/19/2018 MIGUELANGEL SILVA [employer] MARKETING MANAGER Ot C50.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 05/19/2018 MIGUELANGEL SILVA [employer] MARKETING MANAGER Ot Z12.31 ENCNTR SCREEN MAMMOGRAM FOR MALIGNANT NE 2018 MIGUELANGEL SILVA [employer] MARKETING MANAGER Ot C50.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 2018 MIGUELANEGL SILVA [employer] MARKETING MANAGER Ot Z12.31 ENCNTR SCREEN MAMMOGRAM FOR MALIGNANT NE 06/04/2018 JUSTO MCDERMOTT DO Ot N28.9 DISORDER OF KIDNEY AND URETER, UNSPECIFI 06/07/2018 MIGUELANGEL SILVA [employer] MARKETING MANAGER Ot C50.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 06/07/2018 MIGUELANGEL SILVA [employer] MARKETING MANAGER Ot N63.41 UNSPECIFIED LUMP IN RIGHT BREAST, SUBARE 06/16/2018 MIGUELANGEL SILVA Ot R92.8 OTH ABN AND INCONCLUSIVE FINDINGS ON DX 06/21/2018 MIGUELANGEL SILVA Ot R92.8 OTH ABN AND INCONCLUSIVE FINDINGS ON DX 06/24/2018 SHARRON CONTRERAS, JUSTO William Ot N28.9 DISORDER OF KIDNEY AND URETER, UNSPECIFI 06/28/2018 MIGUELANGEL SILVA [employer] MARKETING MANAGER Ot C50.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 07/01/2018 SHARRON CONTRERAS, JUSTO William Ot K44.9 DIAPHRAGMATIC HERNIA WITHOUT OBSTRUCTION 07/01/2018 JUSTO MCDERMOTT DO Ot R92.8 OTH ABN AND INCONCLUSIVE FINDINGS ON DX 07/01/2018 JUSTO MCDERMOTT DO Ot Z85.3 PERSONAL HISTORY OF MALIGNANT NEOPLASM O 07/01/2018 JUSTO MCDERMOTT DO Ot Z98.890 OTHER SPECIFIED POSTPROCEDURAL STATES 07/08/2018 ZAID UP Ot C50.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 07/08/2018 ZAID UP Ot N85.2 HYPERTROPHY OF UTERUS 07/16/2018 MIGUELANGEL SILVA Victoria [employer] MARKETING MANAGER Ot C50.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 07/29/2018 ZAID UP Ot C50.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 07/29/2018 ZAID UP N Ot N85.2 HYPERTROPHY OF UTERUS 08/04/2018 ZAID UP Ot C50.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 08/04/2018 ZAID UP Ot N85.2 HYPERTROPHY OF UTERUS 08/05/2018 BLANK ORTEZ, SHILO Edwards Ot Z01.818 ENCOUNTER FOR OTHER PREPROCEDURAL EXAMIN Procedures Code Description Performed By Performed On 45.25 CLOSED ENDOSCOPIC BIOPSY OF LARGE INTEST 06/21/2014 Results Test Result Range [id number] - 06/03/18 14:54 Serum or plasma urea nitrogen measurement (mass/volume) 15 mg/dL 7-18 Serum or plasma creatinine measurement (mass/volume) 0.80 mg/dL 0.60-1.30 Serum or plasma urea nitrogen/creatinine mass ratio 19 NRG Serum or plasma creatinine measurement with calculation of estimated glomerular filtration rate > NRG Encounters ACCT No. Visit Date/Time Discharge Status Pt. Type Provider Facility Loc./Unit Complaint [id number] 08/05/2018 05:36:00 08/05/2018 09:59:00 DIS Outpatient SHILO PARSON MD [facility] PREOP RIGHT SIMPLE MASTECTOMY [id number] 07/06/2018 08:01:00 07/06/2018 23:59:59 CLS Outpatient ZAID UP [facility] RAD BREAST CANCER [id number] 06/28/2018 10:41:00 06/28/2018 23:59:59 CLS Outpatient ZAID UP [facility] ONC [id number] 06/21/2018 09:15:00 06/21/2018 23:59:59 CLS Outpatient MIGUELANGEL SILVA [facility] RAD ABNORMAL MAMMOGRAM, BREAST CANCER [id number] 06/05/2018 10:48:00 06/05/2018 23:59:59 CLS Outpatient JUSTO MCDERMOTT DO [facility] RAD ABN MAMMO [id number] 2018 14:40:00 2018 23:59:59 CLS Outpatient JUSTO MCDERMOTT DO [facility] LAB RENAL INSUFF [id number] 06/02/2018 13:45:00 06/02/2018 23:59:59 CLS Outpatient MIGUELANGEL SILVAP [facility] RAD ABN MAMMO [id number] 05/13/2018 09:46:00 05/13/2018 23:59:59 CLS Outpatient MIGUELANGEL SILVA [facility] RAD BREAST CANCER [id number] 12/31/2017 10:49:00 03/31/2018 00:01:00 DIS Outpatient ZAID UP [facility] ONC [id number] 10/02/2017 11:43:00 10/02/2017 23:59:59 CLS Outpatient JUSTO MCDERMOTT DO [facility] RAD R05 [id number] 05/11/2017 09:40:00 05/11/2017 23:59:59 CLS Outpatient ZAID UP [facility] RAD SCREENING [id number] 12/25/2016 10:44:00 03/25/2017 00:01:00 DIS Outpatient ZAID UP N [facility] ONC [id number] 11/24/2016 09:31:00 11/24/2016 23:59:59 CLS Outpatient EVY PADRON PATTERN STAMPER [facility] RAD LUNG NODULE [id number] 05/09/2016 09:38:00 05/09/2016 23:59:59 CLS Outpatient ZAID UP [facility] RAD SCREENING [id number] 12/26/2015 08:31:00 03/25/2016 00:01:00 DIS Outpatient ZAID UP [facility] ONC [id number] 12/03/2015 09:57:00 12/03/2015 23:59:59 CLS Outpatient EVY PADRON PATTERN STAMPER [facility] RAD LUNG NODULE [id number] 03/01/2015 09:16:00 03/01/2015 23:59:59 CLS Outpatient RALHP SILVEIRA DO [facility] RAD LUNG NODULE [id number] 12/25/2014 09:06:00 12/25/2014 23:59:59 CLS Outpatient ZAID UP Mercedes [facility] ONC [id number] 12/06/2014 08:21:00 12/15/2014 08:30:00 DIS Outpatient DARIANA HENDRICKS MD [facility] WOUNDCARE [id number] 11/08/2014 10:19:00 11/08/2014 15:30:00 DIS Outpatient SHILO PARSON MD [facility] ABDOMINAL ABSCESS [id number] 08/07/2014 06:39:00 08/07/2014 09:50:00 DIS Outpatient SHILO PARSON MD [facility] ISCHEMIC COLITIS [id number] 08/03/2014 05:49:00 08/03/2014 23:59:59 CLS Outpatient SHILO PARSON MD [facility] PREOP ISCHEMIC COLITIS [id number] 06/27/2014 12:25:00 06/27/2014 23:59:59 CLS Outpatient RALPH SILVEIRA DO [facility] RAD ABNORNMALITIES COLON AND LIVER [id number] 06/19/2014 11:56:00 06/24/2014 12:45:00 DIS Inpatient JUSTO MCDERMOTT DO [place] [facility] [address] GI BLE[address] CT ABNORMALITIES OF COLON LIVER [id number] 04/27/2014 09:40:00 04/27/2014 23:59:59 CLS Outpatient ZAID UP [facility] RAD SCREENING [id number] 11/07/2013 13:29:00 11/07/2013 23:59:59 CLS Outpatient ZAID UP [facility] ONC [id number] 10/04/2013 08:46:00 10/04/2013 23:59:59 CLS Outpatient TIARRA ORTEZ, DARIANA Diaz [facility] RAD ENLARGED PAROTID LYMPH NODE [id number] 04/25/2013 08:41:00 04/25/2013 23:59:59 CLS Outpatient ZAID UP [facility] RAD SCREENING [id number] 08/11/2018 10:16:00 ACT Outpatient BLANK ORTEZ, SHILO Edwards [facility] SDC RIGHT BREAST CARCINOMA [id number] 05/13/2016 09:26:00 Document Registration [id number] 05/08/2015 14:00:00 Document Registration [id number] 11/08/2012 09:06:00 Document Registration [id number] 04/22/2012 10:19:00 Document Registration [id number] 10/23/2011 15:27:00 Document Registration [id number] 06/11/2011 07:05:00 Document Registration [id number] 06/09/2011 07:08:00 Document Registration [id number] 06/04/2011 17:31:00 Document Registration [id number] 04/16/2011 06:55:00 Document Registration [id number] 10/21/2010 14:59:00 Document Registration [id number] 09/15/2010 05:47:00 Document Registration [id number] 04/15/2010 07:12:00 Document Registration [id number] 10/22/2009 15:12:00 Document Registration [id number] 08/31/2009 15:30:00 Document Registration [id number] 04/12/2009 06:56:00 Document Registration [id number] 03/19/2009 15:40:00 Document Registration
[2018-08-11] MEDS ORDERED: ONDANSETRON 4 MG/2 ML (SDV) Z0FRAN IVP PRN (15:15)
[2018-08-11] MEDS ORDERED: morphine INJ 10 MG/ML 1ML (SYR OR VIAL) IVP ONE (15:15)
[2018-08-11] MEDS ORDERED: HYDROmorphone 2 MG/ML VIAL (DILAUDID) IV ONE (15:15)
[2018-08-11] MEDS ORDERED: morphine INJ 10 MG/ML 1ML (SYR OR VIAL) ONE (15:20)
--- NOTE | 2018-08-11 16:15 | NUR ---
JANEE DAMONS ADMITTED TO ROOM 305 VIA PT BED ACC BY LISA TATE CST AFTER A RIGHT SIMPLE MASTECTOMY TODAY BY DR. PARSON. GUMAROJANEE S introduced to surroundings, call light, bed controls, phone, TV, temperature control, lights, meal times, smoking policy, visitor policy, side rail policy, bathrooms and showers. Patient Rights given to patient in the handbook.
[2018-08-11 16:18] VITALS: BP 154/78
[2018-08-11 16:20] VITALS: BP 131/72
--- NOTE | 2018-08-11 16:20 | NUR ---
O2 STARTED AT 2L/M/NC AFTER PT UNABLE TO MAINTAIN SPO2 ABOVE 90%. ASSESSMENT COMPLETED. PT'S SPOUSE HAD TO LEAVE HOSPITAL FOR AWHILE. CONTINUOUS SPO2 MONITORING. HRRR. BREATH SOUNDS CTA BILATERALLY. RIGHT CHEST WALL DRESSING D/I. JC CHARGED WITH SMALLL AMOUNT OF SANGUINOUS DRAINAGE. PT CLOSES EYES BUT CONVERSES WITHOUT DIFFICULTY. IV PLACED ON PUMP WITH NEW TUBING. CALF SCDS ON BILATERALLY.
--- NOTE | 2018-08-11 16:45 | NUR ---
RT NOTIFIED OF NEED FOR END TIDAL CO2 MONITORING. OBSERVING PT CLOSELY.
--- NOTE | 2018-08-11 16:53 | NUR ---
KENNEY ARREGUIN IN ROOM TO SET UP END TIDAL CO2 MONITORING.
[2018-08-11 17:03] VITALS: BP 143/72
--- NOTE | 2018-08-11 17:30 | NUR ---
ORDERED FOOD FOR PT. A/O X4. VSS.
[2018-08-11 17:45] VITALS: BP 138/81
[2018-08-11] MEDS: HYDROcodone/APAP 5 MG/325 MG (LORTAB) TAB PO PRN ×2 (17:55→22:02)
--- NOTE | 2018-08-11 17:55 | NUR ---
LORTAB 1 TAB P.O. FOR C/O INCISIONAL PAIN. SPOUSE HERE.
--- NOTE | 2018-08-11 18:05 | NUR ---
END TIDAL CO2 MONITORING D/C'ED. MACHINE REMAINS IN ROOM. DEMIAN RT NOTIFIED OF PT DOING BETTER AND MACHINE OFF BUT REMAINS IN ROOM.
--- NOTE | 2018-08-11 18:10 | NUR ---
UP TO THE BATHROOM. VOIDED 150 CC CLEAR YELLOW URINE. ASSISTED WITH PERICARE. ABLE TO AMBULATE WELL. CHEERFUL AFFECT.
--- NOTE | 2018-08-11 18:45 | NUR ---
HOME MEDICATIONS OBTAINED FROM PT.
--- NOTE | 2018-08-11 19:05 | NUR ---
DR. PARSON NOTIFIED OF NEED FOR ORDER FOR HOME MEDICATIONS. MEDS SENT TO PHARMACY.
[2018-08-11] MEDS ORDERED: PATIENT MAY USE OWN MEDS, ALL MC SCH (19:15)
[2018-08-11 19:45] VITALS: BP 121/62
[2018-08-11] MEDS: ceFAZolin 2 GM IV Premixed 50 ML IV SCH (20:42)
[2018-08-11] MEDS ORDERED: MONTELUKAST 10 MG (SINGULAIR) TAB PO SCH ×2 (21:00)
[2018-08-11] MEDS ORDERED: ATORVASTATIN 10 MG (LIPITOR) TABLET PO SCH ×2 (21:00)
[2018-08-11] MEDS ORDERED: CALCIUM CARBONATE 500 MG (TUMS) TAB.CHEW PO PRN (22:15)
[2018-08-12 00:30] VITALS: BP 128/76
[2018-08-12 04:51] VITALS: BP 152/78
[2018-08-12] MEDS: ceFAZolin 2 GM IV Premixed 50 ML IV SCH (04:51)
[2018-08-12] MEDS: HYDROcodone/APAP 5 MG/325 MG (LORTAB) TAB PO PRN (05:04)
[2018-08-12] MEDS ORDERED: LEVOTHYROXINE 150 MCG (LEVOTHROID) TAB PO SCH ×2 (06:30)
--- NOTE | 2018-08-12 07:05 | NUR ---
Dr. Maldonado called to check on pt, update given, new order rc'd to S.L. IV, will be in to see pt. this am.
--- NOTE | 2018-08-12 07:11 | Anesthesia-General Post-Op ---
General Patient Condition Mental Status/LOC: Same as Preop Cardiovascular: Satisfactory Nausea/Vomiting: Absent Respiratory: Satisfactory Pain: Controlled Complications: Absent Post Op Complications Complications None Follow Up Care/Instructions Patient Instructions None needed. Anesthesia/Patient Condition Patient Condition Patient is doing well, no complaints, stable vital signs, no apparent adverse anesthesia problems. No complications reported per nursing. D/C home per [facility] [place] Criteria: Yes EHSAN HEARN CRNA Aug 12, 2018 07:11
[2018-08-12 08:00] VITALS: BP 149/67
--- NOTE | 2018-08-12 08:20 | NUR ---
THIS RN INTRODUCES SELF TO PT AND SO AT THIS TIME. PHYSICAL ASSESSMENT COMPLETE. MEDICATIONS REVIEWED WITH PT. QUESTIONS ANSWERED. CALL LIGHT WITHIN REACH.
--- NOTE | 2018-08-12 08:58 | NUR ---
DR PARSON HERE AT BEDSIDE TO SEE PT.
[2018-08-12] MEDS ORDERED: amLODIPine 5 MG (NORVASC) TAB PO SCH ×2 (09:00)
[2018-08-12] MEDS ORDERED: LETROZOLE 2.5 MG (FEMARA) TAB PO SCH ×2 (09:00)
[2018-08-12] MEDS ORDERED: VALSARTAN 160 MG (DIOVAN) TABLET PO SCH (09:00)
[2018-08-12] MEDS ORDERED: PANTOPRAZOLE 20 MG TABLET (PROTONIX) PO SCH (09:00)
[2018-08-12] MEDS ORDERED: OLMESARTAN 40 MG PO SCH (09:00)
[2018-08-12] MEDS ORDERED: LORATADINE (CLARITIN) 10 MG TAB PO SCH (09:00)
--- NOTE | 2018-08-12 09:23 | NUR ---
DR PARSON TALKS WITH THIS RN ABOUT PLAN OF PT CARE. DC ORDER IN. PT WOULD LIKE TO GO HOME DANA. THIS RN WILL TEACH HOW TO EMPTY JC DRAIN TO PT. HAS TALKED TO PT ABOUT FOLLOW UP APPOINTMENTS & LOVENOX EDUCATION. WANTS TO ORDER ONE TIME DOSE OF 40 PROTONIX, THIS RN WILL PLACE ORDER AT THIS TIME. PRESCRIPTIONS ALREADY IN CHART.
[2018-08-12] MEDS ORDERED: PANTOPRAZOLE 40 MG (PROTONIX) TAB PO ONE (09:30)
--- NOTE | 2018-08-12 09:47 | Progress Note-Standard ---
Standard Progress Note Progress Notes/Assess & Plan Date Seen by a Provider: Aug 12, 2018 Time Seen by a Provider: 09:10 Progress/Assessment & Plan uneventful night. Reports heartburn and intravenous PPI would be administered. Minimal output from the drain. Vital signs stable. Pain control adequate. Could be discharged home. Reviewed the importance of using chemoprophylaxis with low molecular weight heparin to minimize the risk of postoperative venous thromboembolism. She'll be educated on the use this afternoon. Could be discharged this morning. Dressing change in my office tomorrow morning. Final Diagnosis recurrent carcinoma of right breast SHILO PARSON MD Aug 12, 2018 09:47
[2018-08-12] MEDS ORDERED: ENOXAPARIN 40 MG/0.4 ML (LOVENOX) SYR SC SCH (16:00)
== END 2018-08-12 10:50 | disposition home or self-care (01) ==
LOC: SDC 10:16 → WS 16:24 → SDC 08-12 10:50
PROVIDERS: ATTEND Surgery
DX: C50.411 Malignant neoplasm of upper-outer quadrant of right female breast (principal); Z17.0 Estrogen receptor positive status [ER+]; I12.9 Hypertensive chronic kidney disease with stage 1 through stage 4 chronic kidney disease, or unspecified chronic kidney disease; N18.9 Chronic kidney disease, unspecified; K21.9 Gastro-esophageal reflux disease without esophagitis; Z87.891 Personal history of nicotine dependence; Z79.899 Other long term (current) drug therapy
CPT/HCPCS: 87081; 94664; 94760

== ENCOUNTER 2018-08-22 13:30 | Emergency (ER) | payer MEDICARE ==
[~2018-08-22] VITALS: Ht 172.7 cm; Wt 87.1 kg
[~2018-08-22 13:30] MED LIST changes: +ACHD5005 PO; -AMLO5TAB7 PO; +AMLO5TAB9 PO; +ENOX40DI13 SQ
--- OUTSIDE RECORDS SUMMARY | 2018-08-22 13:35 | XMS REPORT | Clinical Summary ---
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 For more information, please contact: [facility] [address] [place] [address] Date Inactivated Comments Code Status Date Activated 07/06/2014 10:40 AM Full Code 07/05/2014 5:47 PM Provider has discussed Code Status No, discussion not w/Patient or Family? necessary based on Dx 01/18/2014 4:28 PM Full Code 01/17/2014 2:47 PM Provider has discussed Code Status No, more discussion w/Patient or Family? needed
--- OUTSIDE RECORDS SUMMARY | 2018-08-22 13:37 | XMS REPORT | Continuity of Care Document ---
Author Author [facility] Organization [facility] Address Unknown Phone Unavailable Allergies Active Description Code Type Severity Reaction Onset Reported/Identified Relationship to Patient Clinical Status Yes lactose [id number] Drug Allergy Unknown N/A 08/05/2018 Yes Penicillins [id number] Drug Allergy Unknown N/A 08/11/2018 Medications There is no data. 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 SOLITARY PULMONARY NODULE 02/14/2016 ANNEL, [...] 03/25/2016 ANNEL BOBAN N Ot Z79.899 OTHER HALFWAY (CURRENT) DRUG THERAPY 03/27/2016 ANNEL BOBAN N [...] ADULT 03/27/2016 ZAID UP Ot Z79.899 OTHER HALFWAY (CURRENT) DRUG THERAPY 05/09/2016 Ot 174.9 MALIGN [...] NEOPLASM OF THYROID GLAND 11/24/2016 EVY PADRON TYPE CASTER Ot R91.1 SOLITARY PULMONARY NODULE 11/24/2016 EVY PADRON TYPE CASTER Ot R91.1 SOLITARY PULMONARY NODULE 11/24/2016 EVY PADRON TYPE CASTER Ot R91.1 SOLITARY PULMONARY NODULE 11/25/2016 VITOEVY LEON TYPE CASTER Ot R91.8 OTHER NONSPECIFIC ABNORMAL FINDING OF STEVEN 12/17/2016 VITOEVY LEON TYPE CASTER Ot R91.8 OTHER NONSPECIFIC ABNORMAL FINDING OF STEVEN 12/24/2016 EVY PADRON TYPE CASTER Ot R91.8 OTHER NONSPECIFIC ABNORMAL FINDING OF [...] ADULT 12/26/2016 ZAID UP Ot Z79.899 OTHER JOB PLACEMENT OFFICER (CURRENT) DRUG THERAPY 12/26/2016 ZAID UP Ot Z85.3 PERSONAL HISTORY OF MALIGNANT NEOPLASM O 12/26/2016 ZAID UP Ot Z92.3 PERSONAL HISTORY OF IRRADIATION 02/16/2017 ZAID UP Ot E66.9 OBESITY, UNSPECIFIED 02/16/2017 ZAID UP Ot E89.0 POSTPROCEDURAL HYPOTHYROIDISM 02/16/2017 ZAID [...] 02/16/2017 ZAID UP N Ot Z79.899 OTHER JOB PLACEMENT OFFICER (CURRENT) DRUG THERAPY 02/16/2017 ZAID UP N [...] 02/20/2017 ZAID UP N Ot Z79.899 OTHER HALFWAY (CURRENT) DRUG THERAPY 02/20/2017 ANNEL GABEJONELLE N [...] 03/25/2017 ZAID UP N Ot Z79.899 OTHER JOB PLACEMENT OFFICER (CURRENT) DRUG THERAPY 03/25/2017 ANNEL ZAID N [...] 03/26/2017 ZAID UP N Ot Z79.899 OTHER JOB PLACEMENT OFFICER (CURRENT) DRUG THERAPY 03/26/2017 ANNEL ZAID N [...] 02/15/2018 ZAID UP N Ot Z79.899 OTHER JOB PLACEMENT OFFICER (CURRENT) DRUG THERAPY 02/15/2018 ZAID UP N [...] 02/17/2018 ZAID UP N Ot Z79.899 OTHER JOB PLACEMENT OFFICER (CURRENT) DRUG THERAPY 02/17/2018 ZAID UP N [...] 03/31/2018 ZAID UP N Ot Z79.899 OTHER JOB PLACEMENT OFFICER (CURRENT) DRUG THERAPY 03/31/2018 ZAID UP N Ot Z85.3 PERSONAL HISTORY OF MALIGNANT NEOPLASM O 03/31/2018 ZADI UP N Ot Z92.3 PERSONAL HISTORY OF [...] N Ot R91.1 SOLITARY PULMONARY NODULE 04/02/2018 ZAID UP N Ot Z08 ENCNTR FOR FOLLOW-UP EXAM AFTER TRTMT FO 04/02/2018 ZAID UP N Ot Z68.34 BODY MASS INDEX (BMI) 34.0-34.9, ADULT 04/02/2018 ZAID UP N Ot Z79.899 OTHER JOB PLACEMENT OFFICER (CURRENT) DRUG THERAPY 04/02/2018 ZAID UP N [...] Ot R91.1 SOLITARY PULMONARY NODULE 04/06/2018 ANNEL ZAID N Ot Z08 ENCNTR FOR FOLLOW-UP EXAM AFTER TRTMT FO 04/06/2018 ANNEL GABEJONELLE N Ot Z68.34 BODY MASS INDEX (BMI) 34.0-34.9, ADULT 04/06/2018 ZAID UP N Ot Z79.899 OTHER HALFWAY (CURRENT) DRUG THERAPY 04/06/2018 ZAID UP N [...] R91.1 SOLITARY PULMONARY NODULE 05/13/2018 EVY PADRON TYPE CASTER Ot R91.8 OTHER NONSPECIFIC ABNORMAL FINDING OF STEVEN 05/13/2018 ZAID UP N Ot Z12.31 ENCNTR SCREEN MAMMOGRAM FOR MALIGNANT NE 05/13/2018 Ot C73 MALIGNANT NEOPLASM OF THYROID GLAND 05/13/2018 ZAID UP N Ot Z12.31 ENCNTR SCREEN MAMMOGRAM FOR MALIGNANT NE 05/13/2018 JUSTO MCDERMOTT DO Ot R05 COUGH 05/13/2018 MIGUELANGEL SILVA APPLICATION PENETRATION TESTER Ot Z12.31 ENCNTR SCREEN MAMMOGRAM FOR MALIGNANT NE 05/13/2018 ZAID UP Ot E66.9 OBESITY, UNSPECIFIED 05/13/2018 ZAID UP Ot E89.0 POSTPROCEDURAL HYPOTHYROIDISM 05/13/2018 ZAID UP Ot I12.9 HYPERTENSIVE CHRONIC KIDNEY DISEASE W ST 05/13/2018 ZAID UP Ot M19.90 UNSPECIFIED OSTEOARTHRITIS, UNSPECIFIED 05/13/2018 ZIAD UP Ot N18.3 CHRONIC KIDNEY DISEASE, STAGE 3 (MODERAT 05/13/2018 ZAID UP Ot R91.1 SOLITARY PULMONARY NODULE 05/13/2018 ZAID UP Ot Z08 ENCNTR FOR FOLLOW-UP EXAM AFTER TRTMT FO 05/13/2018 ZAID UP Ot Z68.34 BODY MASS INDEX (BMI) 34.0-34.9, ADULT 05/13/2018 ZAID UP Ot Z79.899 OTHER JOB PLACEMENT OFFICER (CURRENT) DRUG THERAPY 05/13/2018 ZAID PU Ot Z85.3 PERSONAL HISTORY OF MALIGNANT NEOPLASM O 05/13/2018 ZAID UP Ot Z92.3 PERSONAL HISTORY OF IRRADIATION 05/17/2018 MIGUELANGEL SILVA APPLICATION PENETRATION TESTER Ot C50.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 05/17/2018 MIGUELANGEL SILVA APPLICATION PENETRATION TESTER Ot Z12.31 ENCNTR SCREEN MAMMOGRAM FOR MALIGNANT NE 05/19/2018 MIGUELANGEL SILVA APPLICATION PENETRATION TESTER Ot C50.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 05/19/2018 MIGUELANGEL SILVA APPLICATION PENETRATION TESTER Ot Z12.31 ENCNTR SCREEN MAMMOGRAM FOR MALIGNANT NE 2018 MIGUELANGEL SILVA APPLICATION PENETRATION TESTER Ot C50.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 2018 MIGUELANGEL SILVA APPLICATION PENETRATION TESTER Ot Z12.31 ENCNTR SCREEN MAMMOGRAM FOR MALIGNANT NE 06/04/2018 JUSTO MCDERMOTT DO Ot N28.9 DISORDER OF KIDNEY AND URETER, UNSPECIFI 06/07/2018 MIGUELANGEL SILVA APPLICATION PENETRATION TESTER Ot C50.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 06/07/2018 MIGUELANGEL SILVA APPLICATION PENETRATION TESTER Ot N63.41 UNSPECIFIED LUMP IN RIGHT BREAST, SUBARE 06/16/2018 MIGUELANGEL SILVA APPLICATION PENETRATION TESTER Ot R92.8 OTH ABN AND INCONCLUSIVE FINDINGS ON DX 06/21/2018 MIGUELANGEL SILVA APPLICATION PENETRATION TESTER Ot R92.8 OTH ABN AND INCONCLUSIVE FINDINGS ON DX 06/24/2018 SHARRON CONTRERAS, JUSTO William Ot N28.9 DISORDER OF KIDNEY AND URETER, UNSPECIFI 06/28/2018 MIGUELANGEL SILVA APPLICATION PENETRATION TESTER Ot C50.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 07/01/2018 SHARRON CONTRERAS, JUSTO William Ot K44.9 DIAPHRAGMATIC HERNIA WITHOUT OBSTRUCTION 07/01/2018 SHARRON CONTRERAS, JUSTO William Ot R92.8 OTH ABN AND INCONCLUSIVE FINDINGS ON DX 07/01/2018 JUSTO MCDERMOTT DO Ot Z85.3 PERSONAL HISTORY OF MALIGNANT NEOPLASM O 07/01/2018 JUSTO MCDERMOTT DO Ot Z98.890 OTHER SPECIFIED POSTPROCEDURAL STATES 07/08/2018 ZAID UP N Ot C50.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 07/08/2018 ZAID UP N Ot N85.2 HYPERTROPHY OF UTERUS 07/16/2018 SILVAMIGUELANGEL Kessler APPLICATION PENETRATION TESTER Ot C50.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 07/29/2018 ZAID UP N Ot C50.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 07/29/2018 ZAID UP N Ot N85.2 HYPERTROPHY OF UTERUS 08/04/2018 ZAID UP N Ot C50.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 08/04/2018 ZAID UP N Ot N85.2 HYPERTROPHY OF UTERUS 08/05/2018 BLANK ORTEZ, SHILO Edwards Ot Z01.818 ENCOUNTER FOR OTHER PREPROCEDURAL EXAMIN 08/16/2018 BLANK ORTEZ, SHILO Edwards Ot C50.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 08/16/2018 BLANK ORTEZ, SHILO Edwards Ot I12.9 HYPERTENSIVE CHRONIC KIDNEY DISEASE W ST 08/16/2018 BLANK ORTEZ, SHILO Edwards Ot K21.9 GASTRO-ESOPHAGEAL REFLUX DISEASE WITHOUT 08/16/2018 BLANK ORTEZ, SHILO Edwards Ot N18.9 CHRONIC KIDNEY DISEASE, UNSPECIFIED 08/16/2018 SHILO PARSON MD, Ot Z17.0 ESTROGEN RECEPTOR POSITIVE STATUS [ER+] 08/16/2018 SHILO PARSON MD Ot Z79.899 OTHER JOB PLACEMENT OFFICER (CURRENT) DRUG THERAPY 08/16/2018 SHILO PARSON MD Ot Z87.891 PERSONAL HISTORY OF NICOTINE DEPENDENCE 08/18/2018 SHILO PARSON MD Ot C50.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 08/18/2018 SHILO PARSON MD, Ot I12.9 HYPERTENSIVE CHRONIC KIDNEY DISEASE W ST 08/18/2018 SHILO PARSON MD, Ot K21.9 GASTRO-ESOPHAGEAL REFLUX DISEASE WITHOUT 08/18/2018 SHILO PARSON MD, Ot N18.9 CHRONIC KIDNEY DISEASE, UNSPECIFIED 08/18/2018 SHILO PARSON MD, Ot Z17.0 ESTROGEN RECEPTOR POSITIVE STATUS [ER+] 08/18/2018 SHILO PARSON MD, Ot Z79.899 OTHER HALFWAY (CURRENT) DRUG THERAPY 08/18/2018 SHILO PARSON MD, Ot Z87.891 PERSONAL HISTORY OF NICOTINE DEPENDENCE Procedures Code Description Performed By Performed On 45.25 CLOSED ENDOSCOPIC BIOPSY OF LARGE INTEST 06/21/2014 Results Test Result Range [id number] - 06/03/18 14:54 Serum or plasma urea nitrogen measurement (mass/volume) 15 mg/dL 7-18 Serum or plasma creatinine measurement (mass/volume) 0.80 mg/dL 0.60-1.30 Serum or plasma urea nitrogen/creatinine mass ratio 19 NRG Serum or plasma creatinine measurement with calculation of estimated glomerular filtration rate > NRG Methicillin resistant Staphylococcus aureus (MRSA) screening culture - 10:28 Methicillin resistant Staphylococcus aureus (MRSA) screening culture NEG NRG Encounters ACCT No. Visit Date/Time Discharge Status Pt. Type Provider Facility Loc./Unit Complaint [id number] 08/19/2018 08:49:00 08/19/2018 23:59:59 CLS Outpatient ZAID UP [facility] ONC [id number] 08/11/2018 10:16:00 08/12/2018 10:50:00 DIS Outpatient SHILO PARSON MD [facility] SDC RIGHT BREAST CARCINOMA [id number] 08/05/2018 05:36:00 08/05/2018 09:59:00 DIS Outpatient BLANK ORTEZ, SHILO Edwards [facility] PREOP RIGHT SIMPLE MASTECTOMY [id number] 07/06/2018 08:01:00 07/06/2018 23:59:59 CLS Outpatient ZAID UP [facility] RAD BREAST CANCER [id number] 06/21/2018 09:15:00 06/21/2018 23:59:59 CLS Outpatient MIGUELANGEL SILVAP [facility] RAD ABNORMAL MAMMOGRAM, BREAST CANCER [id number] 06/05/2018 10:48:00 06/05/2018 23:59:59 CLS Outpatient JUSTO MCDERMOTT DO [facility] RAD ABN MAMMO [id number] 2018 14:40:00 2018 23:59:59 CLS Outpatient JUSTO MCDERMOTT DO [facility] LAB RENAL INSUFF [id number] 06/02/2018 13:45:00 06/02/2018 23:59:59 CLS Outpatient MIGUELANGEL SILVA APPLICATION PENETRATION TESTER [facility] RAD ABN MAMMO [id number] 05/13/2018 09:46:00 05/13/2018 23:59:59 CLS Outpatient MIGUELANGEL SILVA APPLICATION PENETRATION TESTER [facility] RAD BREAST CANCER [id number] 12/31/2017 10:49:00 03/31/2018 00:01:00 DIS Outpatient ZAID UP [facility] ONC [id number] 10/02/2017 11:43:00 10/02/2017 23:59:59 CLS Outpatient JUSTO MCDERMOTT DO [facility] RAD R05 [id number] 05/11/2017 09:40:00 05/11/2017 23:59:59 CLS Outpatient ZAID UP [facility] RAD SCREENING [id number] 12/25/2016 10:44:00 03/25/2017 00:01:00 DIS Outpatient ZAID UP [facility] ONC [id number] 11/24/2016 09:31:00 11/24/2016 23:59:59 CLS Outpatient EVY PADRON TYPE CASTER [facility] RAD LUNG NODULE [id number] 05/09/2016 09:38:00 05/09/2016 23:59:59 CLS Outpatient ZAID UP [facility] RAD SCREENING [id number] 12/26/2015 08:31:00 03/25/2016 00:01:00 DIS Outpatient ZAID UP [facility] ONC [id number] 12/03/2015 09:57:00 12/03/2015 23:59:59 CLS Outpatient EVY PADRON TYPE CASTER [facility] RAD LUNG NODULE [id number] 03/01/2015 09:16:00 03/01/2015 23:59:59 CLS Outpatient RALPH SILVEIRA DO [facility] RAD LUNG NODULE [id number] 12/25/2014 09:06:00 12/25/2014 23:59:59 CLS Outpatient ZAID UP [facility] ONC [id number] 12/06/2014 08:21:00 12/15/2014 08:30:00 DIS Outpatient DARIANA HENDRICKS MD [facility] WOUNDCARE [id number] 11/08/2014 10:19:00 11/08/2014 15:30:00 DIS Outpatient SHILO PARSON MD [facility] ABDOMINAL ABSCESS [id number] 08/07/2014 06:39:00 08/07/2014 09:50:00 DIS Outpatient SHILO PARSON MD [facility] ISCHEMIC COLITIS [id number] 08/03/2014 05:49:00 08/03/2014 23:59:59 CLS Outpatient SHILO PARSON MD [facility] PREOP ISCHEMIC COLITIS [id number] 06/27/2014 12:25:00 06/27/2014 23:59:59 CLS Outpatient RALPH SILVEIRA DO [facility] RAD ABNORNMALITIES COLON AND LIVER [id number] 06/19/2014 11:56:00 06/24/2014 12:45:00 DIS Inpatient GELLENDER DO, JUSTO A [facility] 4[address] GI BLEED CT ABNORMALITIES OF COLON LIVER [id number] 04/27/2014 09:40:00 04/27/2014 23:59:59 CLS Outpatient ZAID UP [facility] RAD SCREENING [id number] 11/07/2013 13:29:00 11/07/2013 23:59:59 CLS Outpatient ZAID UP Mercedes [facility] ONC [id number] 10/04/2013 08:46:00 10/04/2013 23:59:59 CLS Outpatient DARIANA MAYEN MD [facility] RAD ENLARGED PAROTID LYMPH NODE [id number] 04/25/2013 08:41:00 04/25/2013 23:59:59 CLS Outpatient ZAID UP [facility] RAD SCREENING [id number] 05/13/2016 09:26:00 Document Registration [id number] 05/08/2015 14:00:00 Document Registration [id number] 11/08/2012 09:06:00 Document Registration [id number] 04/22/2012 10:19:00 Document Registration [id number] 10/23/2011 15:27:00 Document Registration [id number] 06/11/2011 07:05:00 Document Registration [id number] 06/09/2011 07:08:00 Document Registration [id number] 06/04/2011 17:31:00 Document Registration [id number] 04/16/2011 06:55:00 Document Registration [id number] 10/21/2010 14:59:00 Document Registration [id number] 09/15/2010 05:47:00 Document Registration [id number] 04/15/2010 07:12:00 Document Registration [id number] 10/22/2009 15:12:00 Document Registration [id number] 08/31/2009 15:30:00 Document Registration [id number] 04/12/2009 06:56:00 Document Registration [id number] 03/19/2009 15:40:00 Document Registration
--- NOTE | 2018-08-22 14:11 | ED General ---
General Chief Complaint: General Problems/Pain Stated Complaint: DRAIN ISSUES Nursing Triage Note: Pt had right mastectomy on 08/11/2018 and had drain put in. Pt stated about one hour ago the drain has not been draining. Nursing Sepsis Screen: No Definite Risk Source of Information: Patient Exam Limitations: No Limitations History of Present Illness Date Seen by Provider: Aug 22, 2018 Time Seen by Provider: 14:05 Initial Comments To ER with reports that the JC drain at the site of right mastectomy is not holding vacuum for about one hour now. She had a right mastectomy for right breast carcinoma by Dr. Parson on 08/11/18. She had a 44 cc of slightly bloody yellowish drainage out yesterday she states. Timing/Duration: 1 Hour Severity: Mild Allergies and Home Medications Allergies Coded Allergies: Penicillins (Unverified Allergy, Unknown, 08/11/18) lactose (Verified Allergy, Unknown, 08/05/18) Home Medications Alprazolam 0.25 Mg Tablet, 0.25 MG PO TID PRN for ANXIETY, (Reported) Amlodipine Besylate 5 Mg Tablet, 5 MG PO DAILY, (Reported) Atorvastatin Calcium 10 Mg Tablet, 10 MG PO HS, (Reported) Enoxaparin Sodium 40 Mg/0.4 Ml Syringe, 40 MG SQ DAILY Prescribed by: SHILO PARSON on 08/11/18 1444 Glucosa Tariq 2Kcl/Chondroitin Tariq 1 Each Capsule, 1 CAP PO DAILY, (Reported) Hydrocodone Bit/Acetaminophen 1 Tab Tab, 1 TAB PO Q6H PRN for PAIN-MODERATE Prescribed by: SHILO PARSON on 08/11/18 1442 Letrozole 2.5 Mg Tab, 2.5 MG PO DAILY, (Reported) Levothyroxine Sodium 150 Mcg Tablet, 150 MCG PO DAILY, (Reported) Loratadine 10 Mg Tablet, 10 MG PO DAILY, (Reported) Montelukast Sodium 10 Mg Tablet, 10 MG PO HS, (Reported) Naproxen 500 Mg Tablet, 500 MG PO Q12H, (Reported) Olmesartan Medoxomil 40 Mg Tablet, 40 MG PO DAILY, (Reported) Omeprazole 20 Mg Capsule.dr, 20 MG PO DAILY, (Reported) Ubidecarenone/Vit E Acetate 1 Each Capsule, 100 MG PO BID, (Reported) Patient Home Medication List Home Medication List Reviewed: Yes Review of Systems Review of Systems Constitutional: see HPI EENTM: see HPI Respiratory: no symptoms reported Cardiovascular: no symptoms reported Genitourinary: no symptoms reported Musculoskeletal: no symptoms reported Skin: see HPI Psychiatric/Neurological: No Symptoms Reported Hematologic/Lymphatic: No Symptoms Reported Past Ewttdzj-Ciqfke-Jtrhjs Hx Patient Social History Alcohol Use: Denies Use Recreational Drug Use: No Former Smoker, Quit: Aug 11, 1968 2nd Hand Smoke Exposure: No Recent Foreign Travel: No Contact w/Someone Who Travel: No Recent Infectious Disease Expo: No Recent Hopitalizations: No Physical Abuse: No Sexual Abuse: No Mistreated: No Fear: No Immunizations Up To Date Date of Pneumonia Vaccine: Jun 07, 2014 Date of Influenza Vaccine: Jun 07, 2018 Seasonal Allergies Seasonal Allergies: Yes Past Medical History Surgeries: Yes (BUNION, PAROTID GLAND, LUMPECTOMY) Breast, Gallbladder, Orthopedic, Thyroidectomy Respiratory: No Cardiac: Yes Hypertension Neurological: No Reproductive Disorders: No Female Reproductive Disorders: Denies Sexually Transmitted Disease: No HIV/AIDS: No Genitourinary: No Gastrointestinal: Yes (lactose intolerant) Gastrointestinal Bleed Musculoskeletal: No Endocrine: Yes (THYROIDECTOMY FOR GOITER) HEENT: No (currently thinks she has pink eye) Cancer: Yes Breast What Type of Treatment Did You: Chemotherapy, Radiation, Surgical Intervention Psychosocial: No Integumentary: No Blood Disorders: No Family Medical History Cardiovascular disease Colon cancer Hypertension Physical Exam Vital Signs Vital Signs - First Documented 08/22/18 13:51 Temp 98.3 Pulse 91 Resp 18 B/P (MAP) 143/96 (112) Pulse Ox 97 O2 Delivery Room Air Capillary Refill : Less Than 3 Seconds Height, Weight, BMI Height: 5'8.00" Weight: 192lbs. 0oz. [id number]; 29.0 BMI Method:Stated General Appearance: No Apparent Distress, WD/WN Eyes: Bilateral Eye Normal Inspection, Bilateral Eye PERRL HEENT: PERRL/EOMI, TMs Normal Respiratory: No Accessory Muscle Use, No Respiratory Distress Gastrointestinal: Non Tender, Soft Neurologic/Psychiatric: Alert, Oriented x3, No Motor/Sensory Deficits Skin: Normal Color, Warm/Dry, Other (there is no erythema or drainage at the insertion site where the JC drain enters the skin. However, to the ports in the side of the tubing which would normally be used to aspirate fluid or actually outside of the skin and thus the drain tubing is no longer functional. I spoke with Dr. Parson, recommends completely removing the JC tubing, he'll call the patient tomorrow for follow-up instructions.) Progress/Results/Core Measures Suspected Sepsis Recent Fever Within 48 Hours: No Infection Criteria Present: None New/Unexplained Altered Menta: No Sepsis Screen: No Definite Risk SIRS Temperature:98.3 Pulse: 91 Respiratory Rate: 18 Blood Pressure 143 /96 Mean: 112 Results/Orders Vital Signs/I&O 08/22/18 13:51 Temp 98.3 Pulse 91 Resp 18 B/P (MAP) 143/96 (112) Pulse Ox 97 O2 Delivery Room Air Capillary Refill : Less Than 3 Seconds Blood Pressure Mean: 112 Departure Impression Primary Impression: Dislodged Boris-Zamorano drain Disposition: HOME, SELF-CARE Condition: Stable Departure-Patient Inst. Decision time for Depature: 14:10 Referrals: JUSTO MCDERMOTT DO (PCP/Family) Primary Care Physician Patient Instructions: Wound Care Add. Discharge Instructions: 1. Dr. Mendoza will call you tomorrow with additional instructions. If he does not call by noon and then you may call his office as well. Return to ER for any concerns. Keep this puncture site covered with gauze as you will continue to have some oozing of the same type of drainage from this site for the next few days. Copy Copies To 1: SHILO PARSON MD, PETER J APRN Aug 22, 2018 14:11
[2018-08-22 14:21] VITALS: BP 145/85
== END 2018-08-22 14:21 | disposition home or self-care (01) ==
LOC: EDUNIT# 13:30 → ER 13:31
DX: T85.698A Other mechanical complication of other specified internal prosthetic devices, implants and grafts, initial encounter (principal); I10 Essential (primary) hypertension; K21.9 Gastro-esophageal reflux disease without esophagitis; Z92.21 Personal history of antineoplastic chemotherapy; Z82.49 Family history of ischemic heart disease and other diseases of the circulatory system; Z80.0 Family history of malignant neoplasm of digestive organs; Z90.11 Acquired absence of right breast and nipple; Z88.0 Allergy status to penicillin; Z88.8 Allergy status to other drugs, medicaments and biological substances; Z85.3 Personal history of malignant neoplasm of breast; Z87.891 Personal history of nicotine dependence; Z98.890 Other specified postprocedural states; Z90.89 Acquired absence of other organs
CPT/HCPCS: 99281

== ENCOUNTER 2018-09-09 08:25 | Outpatient (RCR) | payer MEDICARE | END 2018-09-26 | disposition home or self-care (01) | LOC: ONC 08:25 | PROVIDERS: ATTEND Internal Medicine Hematology & Oncology | DX: C50.411 Malignant neoplasm of upper-outer quadrant of right female breast (principal) | CPT/HCPCS: 99213 ==

== ENCOUNTER 2018-12-02 08:39 | Outpatient (RCR) | payer MEDICARE ==
[~2018-12-02 08:39] MED LIST changes: +OMEP20CA13 PO
[2018-12-02 09:02] LABS: BASOPHILS # (AUTO) 0.1 10^3/uL (0.0-0.1); BASOPHILS % (AUTO) 1 % (0-10); EOSINOPHILS # (AUTO) 0.3 10^3/uL (0.0-0.3); EOSINOPHILS % (AUTO) 4 % (0-10); HEMATOCRIT 39 % (35-52); HEMOGLOBIN 12.9 G/DL (11.5-16.0); LYMPHOCYTES # (AUTO) 1.8 X 10^3 (1.0-4.0); LYMPHOCYTES % (AUTO) 29 % (12-44); MEAN CORPUSCULAR HEMOGLOBIN 29 PG (25-34); MEAN CORPUSCULAR HGB CONC 33 G/DL (32-36); MEAN CORPUSCULAR VOLUME 87 FL (80-99); MEAN PLATELET VOLUME 11.5 FL (7.4-10.4); MONOCYTES # (AUTO) 0.5 X 10^3 (0.0-1.0); MONOCYTES % (AUTO) 8 % (0-12); NEUTROPHILS # (AUTO) 3.5 X 10^3 (1.8-7.8); NEUTROPHILS % (AUTO) 57 % (42-75); PLATELET COUNT 224 10^3/uL (130-400); RED CELL DISTRIBUTION WIDTH 12.8 % (10.0-14.5); WHITE BLOOD COUNT 6.1 10^3/uL (4.3-11.0)
[2018-12-02 09:23] LABS: ALBUMIN 4.2 GM/DL (3.2-4.5); BILIRUBIN,TOTAL 0.5 MG/DL (0.1-1.0); CALCIUM 9.5 MG/DL (8.5-10.1); CREATININE SERUM 0.93 MG/DL (0.60-1.30); POTASSIUM 3.8 MMOL/L (3.6-5.0)
== END 2019-03-02 | disposition home or self-care (01) ==
LOC: ONC 08:39
PROVIDERS: ATTEND Internal Medicine Hematology & Oncology
DX: C50.411 Malignant neoplasm of upper-outer quadrant of right female breast (principal)
CPT/HCPCS: 36415; 80053; 85025; 99213

== ENCOUNTER → 2019-04-11 | Outpatient (CLI) | payer MEDICARE | LOC: LAB 08:45 | PROVIDERS: ATTEND Family Medicine | DX: E78.5 Hyperlipidemia, unspecified (principal); E03.9 Hypothyroidism, unspecified | CPT/HCPCS: 36415; 80061; 84443 ==

== ENCOUNTER → 2019-05-16 | Outpatient (CLI) | payer MEDICARE ==
[~2019-05-16] MED LIST changes: +OMEP-280 PO; -OMEP20CA13 PO
--- NOTE | 2019-05-16 10:40 | Diagnostic Imaging Report ---
INDICATION: Routine screening. COMPARISON: 05/13/2018 and 05/11/2017. TECHNIQUE: 2D and 3D unilateral left screening mammography was performed with CAD. FINDINGS: Scattered fibroglandular densities in the left breast are noted. The parenchymal pattern is stable. No mass or malignant appearing microcalcifications are seen. There are benign calcifications. The left axilla is unremarkable. IMPRESSION: No mammographic features suspicious for malignancy are identified. ACR BI-RADS Category 2: Benign findings. Result letter will be mailed to the patient. Note: At least 10% of breast cancer is not imaged by mammography. Dictated by: Dictated on workstation # [id number]
== END ==
LOC: RAD 07:24
PROVIDERS: ATTEND Internal Medicine Hematology & Oncology
DX: Z12.31 Encounter for screening mammogram for malignant neoplasm of breast (principal); C50.919 Malignant neoplasm of unspecified site of unspecified female breast

== ENCOUNTER 2019-07-05 08:43 | Outpatient (RCR) | payer MEDICARE ==
[2019-04-11 09:00] LABS: BASOPHILS # (AUTO) 0.1 10^3/uL (0.0-0.1); BASOPHILS % (AUTO) 1 % (0-10); EOSINOPHILS # (AUTO) 0.1 10^3/uL (0.0-0.3); EOSINOPHILS % (AUTO) 3 % (0-10); HEMATOCRIT 41 % (35-52); HEMOGLOBIN 13.1 G/DL (11.5-16.0); LYMPHOCYTES # (AUTO) 1.6 X 10^3 (1.0-4.0); LYMPHOCYTES % (AUTO) 32 % (12-44); MEAN CORPUSCULAR HEMOGLOBIN 29 PG (25-34); MEAN CORPUSCULAR HGB CONC 32 G/DL (32-36); MEAN CORPUSCULAR VOLUME 89 FL (80-99); MEAN PLATELET VOLUME 11.4 FL (7.4-10.4); MONOCYTES # (AUTO) 0.4 X 10^3 (0.0-1.0); MONOCYTES % (AUTO) 9 % (0-12); NEUTROPHILS # (AUTO) 2.9 X 10^3 (1.8-7.8); NEUTROPHILS % (AUTO) 56 % (42-75); PLATELET COUNT 232 10^3/uL (130-400); RED CELL DISTRIBUTION WIDTH 12.3 % (10.0-14.5); WHITE BLOOD COUNT 5.1 10^3/uL (4.3-11.0)
[2019-04-11 09:23] LABS: ALBUMIN 4.3 GM/DL (3.2-4.5); BILIRUBIN,TOTAL 0.6 MG/DL (0.1-1.0); CALCIUM 9.6 MG/DL (8.5-10.1); CREATININE SERUM 0.95 MG/DL (0.60-1.30); POTASSIUM 3.5 MMOL/L (3.6-5.0); TOTAL PROTEIN 6.9 GM/DL (6.4-8.2)
[2019-07-05 09:06] LABS: BASOPHILS # (AUTO) 0.1 10^3/uL (0.0-0.1); BASOPHILS % (AUTO) 1 % (0-10); EOSINOPHILS # (AUTO) 0.1 10^3/uL (0.0-0.3); EOSINOPHILS % (AUTO) 2 % (0-10); HEMATOCRIT 40 % (35-52); LYMPHOCYTES # (AUTO) 1.8 X 10^3 (1.0-4.0); LYMPHOCYTES % (AUTO) 27 % (12-44); MEAN CORPUSCULAR HEMOGLOBIN 29 PG (25-34); MEAN CORPUSCULAR HGB CONC 32 G/DL (32-36); MEAN CORPUSCULAR VOLUME 88 FL (80-99); MEAN PLATELET VOLUME 11.6 FL (7.4-10.4); MONOCYTES # (AUTO) 0.6 X 10^3 (0.0-1.0); MONOCYTES % (AUTO) 9 % (0-12); NEUTROPHILS # (AUTO) 3.9 X 10^3 (1.8-7.8); NEUTROPHILS % (AUTO) 61 % (42-75); PLATELET COUNT 257 10^3/uL (130-400); RED CELL DISTRIBUTION WIDTH 12.7 % (10.0-14.5); WHITE BLOOD COUNT 6.5 10^3/uL (4.3-11.0)
[2019-07-05 09:29] LABS: ALANINE AMINOTRANSFERASE 26 U/L (0-55); ALBUMIN 4.4 GM/DL (3.2-4.5); ALKALINE PHOSPHATASE 95 U/L (40-136); BILIRUBIN,TOTAL 0.5 MG/DL (0.1-1.0); BUN/CREATININE RATIO 16; CALCIUM 9.6 MG/DL (8.5-10.1); CARBON DIOXIDE 21 MMOL/L (21-32); CHLORIDE 107 MMOL/L (98-107); CREATININE SERUM 0.81 MG/DL (0.60-1.30); GFR ESTIMATED > 60; GLUCOSE 117 MG/DL (70-105); POTASSIUM 3.3 MMOL/L (3.6-5.0); SODIUM 143 MMOL/L (135-145); TOTAL PROTEIN 7.2 GM/DL (6.4-8.2)
== END 2019-07-10 | disposition home or self-care (01) ==
LOC: ONC 08:43
PROVIDERS: ATTEND Internal Medicine Hematology & Oncology
DX: C50.411 Malignant neoplasm of upper-outer quadrant of right female breast (principal)
CPT/HCPCS: 36415; 80053; 84443; 85025; 99213

== ENCOUNTER → 2019-07-05 | Outpatient (CLI) | payer MEDICARE ==
[~2019-07-05] MED LIST changes: -OMEP-280 PO; +OMEP20CA13 PO
== END ==
LOC: LAB 08:47
PROVIDERS: ATTEND Family Medicine
DX: C50.919 Malignant neoplasm of unspecified site of unspecified female breast (principal); E03.9 Hypothyroidism, unspecified

== ENCOUNTER 2019-10-04 08:49 | Outpatient (RCR) | payer MEDICARE ==
[~2019-10-04 08:49] MED LIST changes: -OMEP20CA13 PO; +OMEP20CA18 PO
[2019-10-04 09:09] LABS: BASOPHILS # (AUTO) 0.1 10^3/uL (0.0-0.1); BASOPHILS % (AUTO) 1 % (0-10); EOSINOPHILS # (AUTO) 0.2 10^3/uL (0.0-0.3); EOSINOPHILS % (AUTO) 2 % (0-10); HEMATOCRIT 41 % (35-52); HEMOGLOBIN 13.1 G/DL (11.5-16.0); LYMPHOCYTES # (AUTO) 1.9 X 10^3 (1.0-4.0); LYMPHOCYTES % (AUTO) 28 % (12-44); MEAN CORPUSCULAR HEMOGLOBIN 29 PG (25-34); MEAN CORPUSCULAR HGB CONC 32 G/DL (32-36); MEAN CORPUSCULAR VOLUME 90 FL (80-99); MEAN PLATELET VOLUME 11.4 FL (7.4-10.4); MONOCYTES # (AUTO) 0.6 X 10^3 (0.0-1.0); MONOCYTES % (AUTO) 8 % (0-12); NEUTROPHILS # (AUTO) 4.2 X 10^3 (1.8-7.8); NEUTROPHILS % (AUTO) 61 % (42-75); PLATELET COUNT 227 10^3/uL (130-400); RED CELL DISTRIBUTION WIDTH 12.8 % (10.0-14.5)
[2019-10-04 09:31] LABS: ALANINE AMINOTRANSFERASE 17 U/L (0-55); ALBUMIN 4.4 GM/DL (3.2-4.5); ALKALINE PHOSPHATASE 97 U/L (40-136); BILIRUBIN,TOTAL 0.5 MG/DL (0.1-1.0); BUN/CREATININE RATIO 16; CALCIUM 9.4 MG/DL (8.5-10.1); CARBON DIOXIDE 22 MMOL/L (21-32); CHLORIDE 106 MMOL/L (98-107); GFR ESTIMATED > 60; GLUCOSE 118 MG/DL (70-105); POTASSIUM 4.2 MMOL/L (3.6-5.0); SODIUM 140 MMOL/L (135-145); TOTAL PROTEIN 7.3 GM/DL (6.4-8.2)
== END 2020-01-02 | disposition home or self-care (01) ==
LOC: ONC 08:49
PROVIDERS: ATTEND Internal Medicine Hematology & Oncology
DX: C50.411 Malignant neoplasm of upper-outer quadrant of right female breast (principal); I10 Essential (primary) hypertension; Z90.11 Acquired absence of right breast and nipple; Z79.811 Long term (current) use of aromatase inhibitors; Z98.890 Other specified postprocedural states; Z90.89 Acquired absence of other organs
CPT/HCPCS: 36415; 80053; 85025; 99213

== ENCOUNTER → 2020-04-04 | Outpatient (CLI) | payer MEDICARE ==
[2020-04-04 10:37] LABS: BASOPHILS # (AUTO) 0.1 10^3/uL (0.0-0.1); BASOPHILS % (AUTO) 1 % (0-10); EOSINOPHILS # (AUTO) 0.3 10^3/uL (0.0-0.3); EOSINOPHILS % (AUTO) 3 % (0-10); HEMATOCRIT 41 % (35-52); HEMOGLOBIN 13.6 G/DL (11.5-16.0); LYMPHOCYTES # (AUTO) 2.3 X 10^3 (1.0-4.0); LYMPHOCYTES % (AUTO) 28 % (12-44); MEAN CORPUSCULAR HEMOGLOBIN 30 PG (25-34); MEAN CORPUSCULAR HGB CONC 33 G/DL (32-36); MEAN CORPUSCULAR VOLUME 90 FL (80-99); MEAN PLATELET VOLUME 11.6 FL (7.4-10.4); MONOCYTES # (AUTO) 0.5 X 10^3 (0.0-1.0); MONOCYTES % (AUTO) 6 % (0-12); NEUTROPHILS % (AUTO) 62 % (42-75); PLATELET COUNT 264 10^3/uL (130-400); WHITE BLOOD COUNT 8.2 10^3/uL (4.3-11.0)
[2020-04-04 11:04] LABS: ALBUMIN 4.5 GM/DL (3.2-4.5); BILIRUBIN,TOTAL 0.6 MG/DL (0.1-1.0); CALCIUM 9.5 MG/DL (8.5-10.1); CREATININE SERUM 1.03 MG/DL (0.60-1.30); TOTAL PROTEIN 7.6 GM/DL (6.4-8.2)
== END ==
LOC: EDSTATUS 01-03 14:19 → ONC 10:24
PROVIDERS: ATTEND Internal Medicine Hematology & Oncology
DX: C50.211 Malignant neoplasm of upper-inner quadrant of right female breast (principal); I12.9 Hypertensive chronic kidney disease with stage 1 through stage 4 chronic kidney disease, or unspecified chronic kidney disease; N18.3 Chronic kidney disease, stage 3 (moderate); Z90.11 Acquired absence of right breast and nipple; Z85.3 Personal history of malignant neoplasm of breast; Z92.21 Personal history of antineoplastic chemotherapy; Z92.3 Personal history of irradiation; Z90.89 Acquired absence of other organs
CPT/HCPCS: 80053; 85025; G0463; 99213

== ENCOUNTER → 2020-04-04 | Outpatient (CLI) | payer MEDICARE | LOC: LAB 10:27 | PROVIDERS: ATTEND Family Medicine | DX: E03.9 Hypothyroidism, unspecified (principal); E78.5 Hyperlipidemia, unspecified; I10 Essential (primary) hypertension | CPT/HCPCS: 36415; 80061; 84443 ==

== ENCOUNTER → 2020-05-17 | Outpatient (CLI) | payer MEDICARE ==
--- NOTE | 2020-05-17 11:30 | Diagnostic Imaging Report ---
INDICATION: Routine screening. Comparison is made with prior mammogram 05/16/2019 and 05/13/2018. 2-D and 3-D unilateral left screening mammography was performed with CAD. Scattered fibroglandular densities are identified bilaterally. There is a tiny circumscribed density in the cc view retroareolar inferior location approximately 3 cm from the nipple. No definite corresponding density on the MLO view is identified. Remainder of the breasts unremarkable. There is no suspicious calcifications. Left axilla is unremarkable. IMPRESSION: BI-RADS 0. Tiny circumscribed density retroareolar and inferior left breast, as described. Additional views recommended. If this persists, ultrasound will be needed as well. Dictated by: Dictated on workstation # [id number]
== END ==
LOC: RAD 09:53
PROVIDERS: ATTEND Internal Medicine Hematology & Oncology
DX: Z12.31 Encounter for screening mammogram for malignant neoplasm of breast (principal); C50.919 Malignant neoplasm of unspecified site of unspecified female breast
CPT/HCPCS: 77063

== ENCOUNTER → 2020-05-24 | Outpatient (CLI) | payer MEDICARE ==
[~2020-05-24] MED LIST changes: +AMLO-250 PO; -AMLO5TAB9 PO
--- NOTE | 2020-05-24 15:21 | Diagnostic Imaging Report ---
EXAM: Ultrasound of the left breast, limited The screening mammogram performed on 05/17/2020 noted a tiny circumscribed asymmetry in the medial retroareolar region of the left breast. On the diagnostic mammogram performed earlier today, that finding is difficult to identify with certainty. On this study however there does appear to be a small 3 x 2 x 3 mm rounded avascular hypoechoic lesion in the 8 o'clock position of the retroareolar region. I suspect that this represents a small cyst and this may well correspond to the benign-appearing asymmetry seen on the screening mammogram. There were no solid lesions to suggest malignancy. IMPRESSION: The small asymmetry seen on the screening mammogram is most likely a benign cyst. A six-month follow-up mammogram and ultrasound exam would be recommended for continued evaluation however. ACR category 3. ACR BI-RADS Category 3: Probably benign findings. Result letter will be mailed to the patient. Note: At least 10% of breast cancer is not imaged by mammography. Dictated by: Dictated on workstation # [id number]
--- NOTE | 2020-05-24 17:30 | Diagnostic Imaging Report ---
EXAM: Diagnostic left mammogram INDICATION: Abnormal screening mammogram FINDINGS: The screening mammogram performed on 05/17/2020 noted a small circumscribed asymmetry in the medial retroareolar region of the left breast. This was only seen on the craniocaudad view. On the compression views of this area in the CC projection that finding is not as well visualized. The asymmetry is also difficult to identify with certainty on the true lateral view. I do suspect this is a benign process. Even so, ultrasound would be recommended for further study. IMPRESSION: Ultrasound would be recommended for further evaluation of the left breast. ACR category 0. ACR BI-RADS Category 0: Incomplete. (Needs additional imaging evaluation). Result letter will be mailed to the patient. Note: At least 10% of breast cancer is not imaged by mammography. Dictated by: Dictated on workstation # [id number]
== END ==
LOC: RAD 13:45
PROVIDERS: ATTEND Nurse Practitioner Adult Health
DX: R92.8 Other abnormal and inconclusive findings on diagnostic imaging of breast (principal); Z85.3 Personal history of malignant neoplasm of breast
CPT/HCPCS: 76642; 77065; G0279

== ENCOUNTER → 2020-08-31 | Outpatient (CLI) | payer MEDICARE ==
[~2020-08-31] VITALS: Ht 172.7 cm; Wt 92.7 kg
[~2020-08-31] MED LIST changes: +BAMLANIVIMAB (NON FORM) 700 MG in NS (IVPB) 250 ML IV ONE; +EPINEPHrine INJECTION 1 MG/ML AMP IM PRN; +diphenhydrAMINE 50 MG/ML INJ (BENADRYL) IV PRN
[2020-08-31 11:48] VITALS: BP 146/88
[2020-08-31 14:23] VITALS: BP 167/90
== END ==
LOC: INFUSION 13:09
PROVIDERS: ATTEND Family Medicine
DX: U07.1 COVID-19 (principal)

== ENCOUNTER → 2020-09-27 | Outpatient (CLI) | payer MEDICARE ==
[~2020-09-27] MED LIST changes: -BAMLANIVIMAB (NON FORM) 700 MG in NS (IVPB) 250 ML IV ONE; -EPINEPHrine INJECTION 1 MG/ML AMP IM PRN; -diphenhydrAMINE 50 MG/ML INJ (BENADRYL) IV PRN
[2020-09-27 10:49] LABS: BASOPHILS # (AUTO) 0.1 10^3/uL (0.0-0.1); BASOPHILS % (AUTO) 2 % (0-10); EOSINOPHILS # (AUTO) 0.1 10^3/uL (0.0-0.3); EOSINOPHILS % (AUTO) 2 % (0-10); HEMATOCRIT 40 % (35-52); HEMOGLOBIN 12.9 g/dL (11.5-16.0); LYMPHOCYTES # (AUTO) 1.7 10^3/uL (1.0-4.0); LYMPHOCYTES % (AUTO) 26 % (12-44); MEAN CORPUSCULAR HEMOGLOBIN 30 pg (25-34); MEAN CORPUSCULAR HGB CONC 33 g/dL (32-36); MEAN CORPUSCULAR VOLUME 90 fL (80-99); MEAN PLATELET VOLUME 11.3 fL (9.0-12.2); MONOCYTES # (AUTO) 0.5 10^3/uL (0.0-1.0); MONOCYTES % (AUTO) 7 % (0-12); NEUTROPHILS % (AUTO) 62 % (42-75); PLATELET COUNT 225 10^3/uL (130-400); WHITE BLOOD COUNT 6.4 10^3/uL (4.3-11.0)
[2020-09-27 11:05] LABS: ALBUMIN 4.3 GM/DL (3.2-4.5); BILIRUBIN,TOTAL 0.4 MG/DL (0.1-1.0); CALCIUM 9.1 MG/DL (8.5-10.1); CREATININE SERUM 0.96 MG/DL (0.60-1.30); TOTAL PROTEIN 7.2 GM/DL (6.4-8.2)
== END ==
LOC: ONC 10:24
PROVIDERS: ATTEND Internal Medicine Hematology & Oncology
DX: C50.411 Malignant neoplasm of upper-outer quadrant of right female breast (principal); I12.9 Hypertensive chronic kidney disease with stage 1 through stage 4 chronic kidney disease, or unspecified chronic kidney disease; N18.30 Chronic kidney disease, stage 3 unspecified; Z90.11 Acquired absence of right breast and nipple; Z98.890 Other specified postprocedural states; Z92.3 Personal history of irradiation; Z92.21 Personal history of antineoplastic chemotherapy; Z90.89 Acquired absence of other organs
CPT/HCPCS: 80053; 85025; G0463; 99213

== ENCOUNTER → 2020-09-27 | Outpatient (CLI) | payer MEDICARE | LOC: LAB 10:29 | PROVIDERS: ATTEND Family Medicine | DX: E78.5 Hyperlipidemia, unspecified (principal); E03.9 Hypothyroidism, unspecified | CPT/HCPCS: 36415; 80061; 84443 ==

== ENCOUNTER → 2020-11-14 | Outpatient (CLI) | payer MEDICARE ==
--- NOTE | 2020-11-14 15:42 | Diagnostic Imaging Report ---
INDICATION: Six-month followup left breast retroareolar density. COMPARISON: Correlation is made with the diagnostic study of earlier this same day as well as diagnostic mammogram from 05/24/2020 and left breast ultrasound from 05/24/2020. FINDINGS: A tiny cyst at the 8 o'clock retroareolar left breast is noted measuring 4 mm x 3 mm x 5 mm, stable when compared to the prior exam. No new abnormality is detected. No solid mass is detected. IMPRESSION: Stable retroareolar left breast cyst. The patient may return to routine annual screening mammography. ACR BI-RADS Category 2: Benign findings. Dictated by: Dictated on workstation # [id number]
--- NOTE | 2020-11-14 15:44 | Diagnostic Imaging Report ---
INDICATION: Left breast nodule. This study is performed for followup. COMPARISON: Correlation is made to the prior mammograms of 05/17/2020 and 05/16/2019. TECHNIQUE: Unilateral left 2D and 3D diagnostic mammography was performed with CAD. FINDINGS: Scattered fibroglandular densities in the left breast are noted. The nodular density in the retroareolar left breast on the prior study is not as well seen on today's study. No new mass is seen. No malignant appearing microcalcifications are identified. The left axilla is unremarkable. IMPRESSION: The left breast nodule is not well seen on today's study. Even so, sonographic interrogation of the retroareolar left breast is recommended and will be performed today. ACR BI-RADS Category 0: Incomplete. (Needs additional imaging evaluation). Result letter will be mailed to the patient. Note: At least 10% of breast cancer is not imaged by mammography. Dictated by: Dictated on workstation # [id number]
== END ==
LOC: RAD 12:45
PROVIDERS: ATTEND Nurse Practitioner Adult Health
DX: N60.02 Solitary cyst of left breast (principal); Z85.3 Personal history of malignant neoplasm of breast
CPT/HCPCS: 76642; 77065; G0279

== ENCOUNTER → 2021-04-09 | Outpatient (CLI) | payer MEDICARE ==
[2021-04-09 09:30] LABS: BASOPHILS # (AUTO) 0.1 10^3/uL (0.0-0.1); BASOPHILS % (AUTO) 2 % (0-10); EOSINOPHILS # (AUTO) 0.2 10^3/uL (0.0-0.3); EOSINOPHILS % (AUTO) 2 % (0-10); HEMATOCRIT 42 % (35-52); LYMPHOCYTES # (AUTO) 1.8 10^3/uL (1.0-4.0); LYMPHOCYTES % (AUTO) 23 % (12-44); MEAN CORPUSCULAR HEMOGLOBIN 29 pg (25-34); MEAN CORPUSCULAR HGB CONC 31 g/dL (32-36); MEAN CORPUSCULAR VOLUME 93 fL (80-99); MONOCYTES # (AUTO) 0.6 10^3/uL (0.0-1.0); MONOCYTES % (AUTO) 8 % (0-12); NEUTROPHILS # (AUTO) 5.1 10^3/uL (1.8-7.8); NEUTROPHILS % (AUTO) 65 % (42-75); PLATELET COUNT 275 10^3/uL (130-400); WHITE BLOOD COUNT 7.9 10^3/uL (4.3-11.0)
[2021-04-09 09:47] LABS: ALBUMIN 4.4 GM/DL (3.2-4.5); BILIRUBIN,TOTAL 0.5 MG/DL (0.1-1.0); CALCIUM 9.7 MG/DL (8.5-10.1); CREATININE SERUM 0.96 MG/DL (0.60-1.30); POTASSIUM 4.2 MMOL/L (3.6-5.0); TOTAL PROTEIN 7.3 GM/DL (6.4-8.2)
== END ==
LOC: ONC 09:22
PROVIDERS: ATTEND Internal Medicine Hematology & Oncology
DX: C50.411 Malignant neoplasm of upper-outer quadrant of right female breast (principal); I12.9 Hypertensive chronic kidney disease with stage 1 through stage 4 chronic kidney disease, or unspecified chronic kidney disease; N18.30 Chronic kidney disease, stage 3 unspecified; Z90.11 Acquired absence of right breast and nipple; Z92.3 Personal history of irradiation; Z92.21 Personal history of antineoplastic chemotherapy; Z98.890 Other specified postprocedural states; Z79.811 Long term (current) use of aromatase inhibitors; Z90.89 Acquired absence of other organs
CPT/HCPCS: 80053; 85025; G0463; 99213

== ENCOUNTER 2021-10-20 17:15 | Emergency (ER) | payer MEDICARE ==
[~2021-10-20] VITALS: Ht 172.7 cm; Wt 90.9 kg
[2021-10-20] MEDS ORDERED: NS IV 1000 ML 1,000 ML IV SCH ×2 (17:30→19:00)
[2021-10-20 17:44] LABS: BASOPHILS # (AUTO) 0.1 10^3/uL (0.0-0.1); BASOPHILS % (AUTO) 1 % (0-10); EOSINOPHILS # (AUTO) 0.1 10^3/uL (0.0-0.3); EOSINOPHILS % (AUTO) 1 % (0-10); HEMATOCRIT 38 % (35-52); HEMOGLOBIN 12.1 g/dL (11.5-16.0); LYMPHOCYTES # (AUTO) 0.9 10^3/uL (1.0-4.0); LYMPHOCYTES % (AUTO) 6 % (12-44); MEAN CORPUSCULAR HEMOGLOBIN 29 pg (25-34); MEAN CORPUSCULAR HGB CONC 32 g/dL (32-36); MEAN CORPUSCULAR VOLUME 89 fL (80-99); MEAN PLATELET VOLUME 11.2 fL (9.0-12.2); MONOCYTES % (AUTO) 6 % (0-12); NEUTROPHILS # (AUTO) 12.9 10^3/uL (1.8-7.8); NEUTROPHILS % (AUTO) 86 % (42-75); PLATELET COUNT 229 10^3/uL (130-400); WHITE BLOOD COUNT 15.1 10^3/uL (4.3-11.0)
[2021-10-20] MEDS ORDERED: LIDOCAINE 2% VISCOUS 15 ML UDC PO ONE (17:45)
[2021-10-20] MEDS ORDERED: ANTACID SUSP 30 ML UDC (MYLANTA) PO ONE (17:45)
[2021-10-20 18:08] LABS: ALBUMIN 3.8 GM/DL (3.2-4.5); CALCIUM 9.1 MG/DL (8.5-10.1); CREATININE SERUM 0.81 MG/DL (0.60-1.30); POTASSIUM 4.3 MMOL/L (3.6-5.0); TOTAL PROTEIN 6.6 GM/DL (6.4-8.2)
--- NOTE | 2021-10-20 18:08 | ED Abdominal Pain ---
General Chief Complaint: Abdominal/GI Problems Stated Complaint: ABD / BACK PAIN Nursing Triage Note: AMB TO ED WITH C/O EPIGASTRIC PAIN WITH RADIATION TO BACK ONSET LAST NIGHT PATIENT HAS NO GALLBLADDER AND SEVERAL ERCP AT [facility]. History of Present Illness Date Seen by Provider: Oct 20, 2021 Time Seen by Provider: 17:15 Initial Comments 71-year-old female presents for epigastric pain that is been present approximately 2 days. It had been intermittent yesterday but has been pretty continual today. She had a cholecystectomy 2000, she has required an ERCP every few years for recurrent stones and biliary colic. She denies any nausea or vomiting.. Timing/Duration: 2-3 Days Severity/Quality: Moderate Location: Epigastric Radiation: No Radiation Associated Symptoms: Denies Symptoms; No Fever/Chills, No Heartburn, No Nausea/Vomiting Allergies and Home Medications Allergies Coded Allergies: Penicillins (Unverified Allergy, Unknown, 08/11/18) lactose (Verified Allergy, Unknown, 08/05/18) Patient Home Medication List Home Medication List Reviewed: Yes Alprazolam (Xanax) 0.25 Mg Tablet, 0.25 MG PO TID PRN for ANXIETY, (Reported) Entered as Reported by: ALESHA LEVIN on 08/05/18 09 Amlodipine Besylate (Amlodipine Besylate) 5 Mg Tablet, 5 MG PO DAILY, (Reported) Entered as Reported by: ALESHA LEVIN on 08/05/18 09 Atorvastatin Calcium (Atorvastatin Calcium) 10 Mg Tablet, 10 MG PO HS, (Reported) Entered as Reported by: ALESHA LEVIN on 08/05/18 09 Enoxaparin Sodium (Lovenox) 40 Mg/0.4 Ml Syringe, 40 MG SQ DAILY Prescribed by: SHILO PARSON on 08/11/18 1444 Glucosa Tariq 2Kcl/Chondroitin Tariq (Glucosamine & Chondroitin Cap) 1 Each Capsule, 1 CAP PO DAILY, (Reported) Entered as Reported by: ALESHA LEVIN on 08/05/18 09 Hydrocodone Bit/Acetaminophen (Lortab 5 Mg Tablet) 1 Tab Tab, 1 TAB PO Q6H PRN for PAIN-MODERATE Prescribed by: SHILO PARSON on 08/11/18 1442 Letrozole (Femara) 2.5 Mg Tab, 2.5 MG PO DAILY, (Reported) Entered as Reported by: ALESHA LEVIN on 08/05/18956 Levothyroxine Sodium (Levothyroxine Sodium) 150 Mcg Tablet, 150 MCG PO DAILY, (Reported) Entered as Reported by: ALESHA LEVIN on 08/05/18956 Loratadine (Loratadine) 10 Mg Tablet, 10 MG PO DAILY, (Reported) Entered as Reported by: ALESHA LEVIN on 08/05/18956 Montelukast Sodium (Singulair) 10 Mg Tablet, 10 MG PO HS, (Reported) Entered as Reported by: REJI PELAEZ on 08/06/18 101 Naproxen (Naproxen) 500 Mg Tablet, 500 MG PO Q12H, (Reported) Entered as Reported by: ALESHA LEVIN on 08/05/18956 Olmesartan Medoxomil (Benicar) 40 Mg Tablet, 40 MG PO DAILY, (Reported) Entered as Reported by: ALESHA LEVIN on 08/05/18956 Omeprazole (Omeprazole) 20 Mg Capsule.dr, 20 MG PO DAILY, (Reported) Entered as Reported by: ALESHA LEVIN on 08/05/18956 Ubidecarenone/Vit E Acetate (Co Q-10 100 mg Softgel) 1 Each Capsule, 100 MG PO BID, (Reported) Entered as Reported by: ALESHA LEVIN on 08/05/18956 Review of Systems Review of Systems Constitutional: no symptoms reported, see HPI; No fever, No malaise Gastrointestinal: See HPI, Abdominal Pain; Denies Diarrhea, Denies Nausea, Denies Poor Appetite; Poor Fluid Intake; Denies Rectal Bleeding, Denies Vomiting All Other Systems Reviewed Negative Unless Noted: Yes Past Bszrxvt-Zgfdzo-Flzoro Hx Patient Social History Tobacco Use?: No Immunizations Up To Date First/Initial COVID19 Vaccinat: YES Second COVID19 Vaccination [place]: YES COVID19 Vaccine Materials Handling Coordinator: JOAN Seasonal Allergies Seasonal Allergies: Yes Past Medical History Surgeries: Yes (BUNION, PAROTID GLAND, LUMPECTOMY) Breast, Gallbladder, Orthopedic, Thyroidectomy Respiratory: No Cardiac: Yes Hypertension Neurological: No Reproductive Disorders: No Female Reproductive Disorders: Denies Sexually Transmitted Disease: No HIV/AIDS: No Genitourinary: No Gastrointestinal: Yes (lactose intolerant) Gastrointestinal Bleed Musculoskeletal: No Endocrine: Yes (THYROIDECTOMY FOR GOITER) HEENT: No (currently thinks she has pink eye) Cancer: Yes Breast What Type of Treatment Did You: Chemotherapy, Radiation, Surgical Intervention Psychosocial: No Integumentary: No Blood Disorders: No Family Medical History Reviewed Nursing Family Hx Cardiovascular disease Colon cancer Hypertension Physical Exam Vital Signs Vital Signs - First Documented 10/20/21 10/20/21 17:20 20:51 Temp 37.4 Pulse 107 Resp 18 B/P (MAP) 189/100 (129) Pulse Ox 98 O2 Delivery Room Air Capillary Refill : Less Than 3 Seconds Height/Weight/BMI Height: 5'8.00" Weight: 192lbs. 0oz. [id number]; 30.00 BMI Method:Stated General Appearance: WD/WN, no apparent distress HEENT: PERRL/EOMI, normal ENT inspection, TMs normal, pharynx normal Neck: non-tender, full range of motion, supple, normal inspection Respiratory: chest non-tender, lungs clear, normal breath sounds Cardiovascular: normal peripheral pulses, regular rate, rhythm Gastrointestinal: normal bowel sounds, soft; No guarding, No rebound; tenderness (Epigastric); No mass Extremities: normal range of motion, non-tender, normal inspection, no pedal edema Back: normal inspection, no CVA tenderness, no vertebral tenderness Neurologic/Psychiatric: no motor/sensory deficits, alert, normal mood/affect, oriented x 3 Skin: normal color, warm/dry; No jaundice Progress/Results/Core Measures Results/Orders Lab Results Laboratory Tests Test 10/20/21 17:38 10/20/21 19:20 Range/Units White Blood Count 15.1 H 4.3-11.0 10^3/uL Red Blood Count 4.21 3.80-5.11 10^6/uL Hemoglobin 12.1 11.5-16.0 g/dL Hematocrit 38 35-52 % Mean Corpuscular Volume 89 80-99 fL Mean Corpuscular Hemoglobin 29 25-34 pg Mean Corpuscular Hemoglobin Concent 32 32-36 g/dL Red Cell Distribution Width 12.9 10.0-14.5 % Platelet Count 229 130-400 10^3/uL Mean Platelet Volume 11.2 9.0-12.2 fL Immature Granulocyte % (Auto) 1 % Neutrophils (%) (Auto) 86 H 42-75 % Lymphocytes (%) (Auto) 6 L 12-44 % Monocytes (%) (Auto) 6 0-12 % Eosinophils (%) (Auto) 1 0-10 % Basophils (%) (Auto) 1 0-10 % Neutrophils # (Auto) 12.9 H 1.8-7.8 10^3/uL Lymphocytes # (Auto) 0.9 L 1.0-4.0 10^3/uL Monocytes # (Auto) 1.0 0.0-1.0 10^3/uL Eosinophils # (Auto) 0.1 0.0-0.3 10^3/uL Basophils # (Auto) 0.1 0.0-0.1 10^3/uL Immature Granulocyte # (Auto) 0.1 0.0-0.1 10^3/uL Neutrophils % (Manual) 85 % Lymphocytes % (Manual) 8 % Monocytes % (Manual) 6 % Basophils % (Manual) 1 % Blood Morphology Comment NORMAL Sodium Level 138 135-145 MMOL/L Potassium Level 4.3 3.6-5.0 MMOL/L Chloride Level 106 98-107 MMOL/L Carbon Dioxide Level 18 L 21-32 MMOL/L Anion Gap 14 5-14 MMOL/L Blood Urea Nitrogen 14 7-18 MG/DL Creatinine 0.81 0.60-1.30 MG/DL Estimat Glomerular Filtration Rate 77 BUN/Creatinine Ratio 17 Glucose Level 121 H 70-105 MG/DL Calcium Level 9.1 8.5-10.1 MG/DL Corrected Calcium 9.3 8.5-10.1 MG/DL Total Bilirubin 3.0 H 0.1-1.0 MG/DL Aspartate Amino Transf (AST/SGOT) 378 H 5-34 U/L Alanine Aminotransferase (ALT/SGPT) 617 H 0-55 U/L Alkaline Phosphatase 263 H 40-136 U/L C-Reactive Protein High Sensitivity 10.87 H 0.00-0.50 MG/DL Total Protein 6.6 6.4-8.2 GM/DL Albumin 3.8 3.2-4.5 GM/DL Amylase Level 15 L 25-125 U/L Lipase 18 8-78 U/L Urine Color YELLOW Urine Clarity CLEAR Urine pH 6.5 5-9 Urine Specific [place] 1.010 L 1.016-1.022 Urine Protein NEGATIVE NEGATIVE Urine Glucose (UA) NEGATIVE NEGATIVE Urine Ketones NEGATIVE NEGATIVE Urine Nitrite NEGATIVE NEGATIVE Urine Bilirubin 1+ H NEGATIVE Urine Urobilinogen 0.2 < = 1.0 MG/DL Urine Leukocyte Esterase NEGATIVE NEGATIVE Urine RBC (Auto) NEGATIVE NEGATIVE Urine RBC 0-2 /HPF Urine WBC 0-2 /HPF Urine Squamous Epithelial Cells NONE /HPF Urine Crystals NONE /LPF Urine Bacteria NEGATIVE /HPF Urine Casts PRESENT /LPF Urine Hyaline Casts 0-2 H /LPF Urine Waxy Casts 0-2 H /LPF Urine Mucus NEGATIVE /LPF Urine Culture Indicated NO My Orders Orders - YARELIS BRIGGS Amylase (10/20/21 17:30) Cbc With Automated Diff (10/20/21 17:30) Comprehensive Metabolic Panel (10/20/21 17:30) Hs C Reactive Protein (10/20/21 17:30) Lipase (10/20/21 17:30) Ua Culture If Indicated (10/20/21 17:30) Ed Iv/Invasive Line Start (10/20/21 17:30) Ns Iv 1000 Ml (Sodium Chloride 0.9%) (10/20/21 17:30) Lidocaine 2% Viscous 15 Ml (Xylocaine Vi (10/20/21 17:45) Antacid Suspension (Mylanta Suspension (10/20/21 17:45) Manual Differential (10/20/21 17:38) Fentanyl Inj (Sublimaze Injection) (10/20/21 18:38) Ed Iv/Invasive Line Start (10/20/21 18:57) Ns Iv 1000 Ml (Sodium Chloride 0.9%) (10/20/21 19:00) Ct Abdomen/Pelvis W (10/20/21 19:31) Iohexol Injection (Omnipaque 350 Mg/Ml 1 (10/20/21 19:45) Ns (Ivpb) (Sodium Chloride 0.9% Ivpb Bag (10/20/21 19:45) Fentanyl Inj (Sublimaze Injection) (10/20/21 19:52) Promethazine Injection (Phenergan Injec (10/20/21 19:52) Levofloxacin 500 Mg/100 Ml Iv (Levaquin (10/20/21 20:15) Ondansetron Injection (Zofran Injectio (10/20/21 21:15) Medications Given in ED Current Medications Medications Dose Ordered Sig/Francheska Route Start Time Stop Time Status Last Admin Dose Admin Al Hydrox/Mg Hydrox/Simethicone 30 ml ONCE ONCE PO 10/20/21 17:45 10/20/21 17:46 DC 10/20/21 17:52 30 ML Iohexol 100 ml ONCE ONCE IV 10/20/21 19:45 10/20/21 19:46 DC 10/20/21 20:20 100 ML Levofloxacin/ Dextrose 100 ml @ 100 mls/hr ONCE ONCE IV 10/20/21 20:15 10/20/21 21:14 DC 10/20/21 20:32 100 MLS/HR Lidocaine HCl 15 ml ONCE ONCE PO 10/20/21 17:45 10/20/21 17:46 DC 10/20/21 17:51 15 ML Ondansetron HCl 4 mg ONCE ONCE IVP 10/20/21 21:15 10/20/21 21:16 DC 10/20/21 21:59 4 MG Sodium Chloride 100 ml ONCE ONCE IV 10/20/21 19:45 10/20/21 19:46 DC 10/20/21 20:20 80 ML Vital Signs/I&O 10/20/21 10/20/21 10/20/21 17:20 20:51 22:07 Temp 37.4 37.4 Pulse 107 97 Resp 18 16 B/P (MAP) 189/100 (129) 149/79 Pulse Ox 98 97 O2 Delivery Room Air Room Air Blood Pressure Mean: 129 Progress Progress Note : Time: 17:15 Progress Note Patient seen and evaluated, will obtain labs and try a GI cocktail. Normal saline 1 L per IV. 1800 patient complaining of increased pain, no change after the GI cocktail. Will give fentanyl 50 mcg IV. 0 Temp 37.2; HR 80s, B/P 160/90. 1909 liver enzymes elevated and bilirubin. Will obtain CT of the abdomen and pelvis. 2004 CT showed no acute findings. Spoke to Drs. Mcdonald and Bernie at [facility], agreed with plan for admission. Instructed to keep patient n.p.o. and give Levaquin 500 mg IV. 2099 patient continues to have mild nausea, no vomiting. All records copied. Awaiting antibiotics to finish infusing and will discharge. 2129 patient reports nausea has improved. She has received the Levaquin IV. Discharge instructions and plans to go directly to [facility] reviewed with the patient and her . No questions. Diagnostic Imaging Diagonstic Imaging: CT Plain Films/CT/US/NM/MRI: abdomen, pelvis Comments NAME: JANEE NAIK [facility] REC#: [id number] PT STATUS: REG ER : 1950 PHYSICIAN: YARELIS BRIGGS ADMIT DATE: 10/20/21/ER Signed Date of Exam:10/20/21 CT ABDOMEN/PELVIS W EXAMINATION: CT abdomen and pelvis with intravenous contrast. TECHNIQUE: Multiple contiguous axial images were obtained through the abdomen and pelvis after the uneventful administration of intravenous contrast. All CT scans use one or more of the following dose optimizing techniques: automated exposure control, MA and/or KvP adjustment based on patient size and exam type or iterative reconstruction. HISTORY: Epigastric pain. History of breast cancer. COMPARISON: 06/19/2014. FINDINGS: The heart is unremarkable. Prominent calcified granuloma is seen in the right lung base. Peripherally enhancing lesion is seen in the dome of the liver which demonstrates filling on delayed images, consistent with hemangioma. This measures 5.2 x 3.4 cm. A smaller similar-appearing lesion is seen adjacent to this in the dome of the liver. There is pneumobilia which was present on the prior exam. The gallbladder is surgically absent. The portal vein is patent. The spleen, pancreas, adrenal glands and kidneys have a normal appearance. There is no pathologically enlarged mesenteric or retroperitoneal adenopathy. A small to moderate hiatal hernia is seen. The bowel loops are nondilated. The appendix is visualized in the right lower quadrant and has a normal appearance. Diverticuli are seen in the descending and sigmoid colon without evidence of acute diverticulitis. There is no free fluid or free air. No acute osseous abnormalities. Ureters and bladder are grossly normal. Prominent uterine fibroid is again seen which demonstrates interval calcification since the prior exam. There is no free air, loculated collection or adenopathy in the pelvis. IMPRESSION: 1. No evidence of bowel obstruction. No free fluid or free air. 2. Small to moderate hiatal hernia, increased since the prior exam and possibly representing the patient's history of epigastric pain. 3. Hepatic hemangiomas in the dome of the liver. These have increased in size since the prior exam. No focal hepatic lesion is seen to suggest metastatic disease. 4. Prominent, partially calcified uterine fibroid. Dictated by: Dictated on workstation # [id number] Dict: 10/20/212027 Trans: 10/20/212036 PJE [id number] Interpreted by: FAN JAIME DO Electronically signed by: FAN JAIME DO 10/20/212036 Reviewed: Reviewed by Me Departure Impression Primary Impression: Epigastric abdominal pain Additional Impression: Recurrent biliary colic Disposition: XFER SHT-TRM HOSP Condition: Stable Transfer Transfer Reason: Exceeds level of care Time Spoke to Accepting Phy: 19:50 Transfer Progress Notes Spoke to Drs. Mcdonald and Bernie, agreed with plan to transfer by private vehicle. Transfer Time: 21:30 Transfer Facility: [facility] Method of Transfer: Private Vehicle Departure-Patient Inst. Decision time for Depature: 20:30 Referrals: JUSTO MCDERMOTT DO (PCP/Family) Primary Care Physician Patient Instructions: Biliary Atresia (DC), Endoscopic Retrograde Cholangiopancreatography (DC), Severe Abdominal Pain, Adult (DC) Add. Discharge Instructions: Go directly to [facility]. Do not eat or drink anything. You are admitted to Dr. Gibbs. Dr. Barrios will see you tomorrow and plans to complete the ERCP. All discharge instructions reviewed with patient and/or family. Voiced understanding. YARELIS BRIGGS Oct 20, 2021 18:08
[2021-10-20 18:33] LABS: BASOPHILS % (MANUAL) 1 %; LYMPHOCYTES % (MANUAL) 8 %; MONOCYTES % (MANUAL) 6 %; NEUTROPHILS % (MANUAL) 85 %; RBC MORPH NORMAL
[2021-10-20] MEDS ORDERED: fentaNYL INJ 100 MCG/2 ML AMP IVP STA ×2 (18:38→19:52)
[2021-10-20] MEDS ORDERED: IOHEXOL 350 MG/ML 100 ML (OMNIPAQUE 350) VIAL IV ONE (19:45)
[2021-10-20] MEDS ORDERED: NS 100 ML (IVPB) BAG IV ONE (19:45)
[2021-10-20] MEDS ORDERED: PROMETHAZINE INJ 25 MG/ML (PHENERGAN) AMP IVP STA (19:52)
[2021-10-20 19:55] LABS: COLOR,URINE YELLOW
[2021-10-20 19:56] LABS: BACTERIA,URINE NEGATIVE /HPF; BILIRUBIN,URINE 1+ (NEGATIVE); CLARITY,URINE CLEAR; GLUCOSE, URINE (UA) NEGATIVE (NEGATIVE); HYALINE CASTS, URINE 0-2 /LPF; KETONES,URINE NEGATIVE (NEGATIVE); LEUKOCYTE ESTERASE ,URINE NEGATIVE (NEGATIVE); NITRITE,URINE NEGATIVE (NEGATIVE); PH,URINE 6.5 (5-9); PROTEIN,URINE NEGATIVE (NEGATIVE); RBC,URINE 0-2 /HPF; WAXY CASTS,URINE 0-2 /LPF; WBC,URINE 0-2 /HPF
--- NOTE | 2021-10-20 20:37 | Diagnostic Imaging Report ---
EXAMINATION: CT abdomen and pelvis with intravenous contrast. TECHNIQUE: Multiple contiguous axial images were obtained through the abdomen and pelvis after the uneventful administration of intravenous contrast. All CT scans use one or more of the following dose optimizing techniques: automated exposure control, MA and/or KvP adjustment based on patient size and exam type or iterative reconstruction. HISTORY: Epigastric pain. History of breast cancer. COMPARISON: 06/19/2014. FINDINGS: The heart is unremarkable. Prominent calcified granuloma is seen in the right lung base. Peripherally enhancing lesion is seen in the dome of the liver which demonstrates filling on delayed images, consistent with hemangioma. This measures 5.2 x 3.4 cm. A smaller similar-appearing lesion is seen adjacent to this in the dome of the liver. There is pneumobilia which was present on the prior exam. The gallbladder is surgically absent. The portal vein is patent. The spleen, pancreas, adrenal glands and kidneys have a normal appearance. There is no pathologically enlarged mesenteric or retroperitoneal adenopathy. A small to moderate hiatal hernia is seen. The bowel loops are nondilated. The appendix is visualized in the right lower quadrant and has a normal appearance. Diverticuli are seen in the descending and sigmoid colon without evidence of acute diverticulitis. There is no free fluid or free air. No acute osseous abnormalities. Ureters and bladder are grossly normal. Prominent uterine fibroid is again seen which demonstrates interval calcification since the prior exam. There is no free air, loculated collection or adenopathy in the pelvis. IMPRESSION: 1. No evidence of bowel obstruction. No free fluid or free air. 2. Small to moderate hiatal hernia, increased since the prior exam and possibly representing the patient's history of epigastric pain. 3. Hepatic hemangiomas in the dome of the liver. These have increased in size since the prior exam. No focal hepatic lesion is seen to suggest metastatic disease. 4. Prominent, partially calcified uterine fibroid. Dictated by: Dictated on workstation # [id number]
[2021-10-20] MEDS ORDERED: ONDANSETRON 4 MG/2 ML (SDV) Z0FRAN IVP ONE (21:15)
[2021-10-20 22:07] VITALS: BP 149/79
== END 2021-10-20 22:07 | disposition short-term general hospital (02) ==
LOC: EDUNIT# 17:15 → ER 17:17
DX: K80.50 Calculus of bile duct without cholangitis or cholecystitis without obstruction (principal)
CPT/HCPCS: 36415; 74177; 80053; 81000; 82150; 83690; 85007; 85027; 86141

== ENCOUNTER → 2021-10-29 | Outpatient (CLI) | payer MEDICARE ==
--- NOTE | 2021-10-29 08:32 | Diagnostic Imaging Report ---
INDICATION: Postmenopausal screening for osteoporosis COMPARISON: 08/31/2009 FINDINGS: AP Spine L1-L4: [BMD (g/cm2): 1.149] [T-Score: -0.4] [Z-Score: 0.5] [BMD Previous: 1.254] [BMD % Change: -8.4] LT Hip Neck: [BMD (g/cm2): 0.856] [T-Score: -1.3] [Z-Score: 0.0] LT Hip Total: [BMD (g/cm2):0.832] [T-Score:-1.4] [Z-Score: -0.4] [BMD Previous: 0.983] [BMD % Change: -15.4] RT Hip Neck: [BMD (g/cm2):0.834] [T-Score:-1.5] [Z-Score:-0.2] RT Hip Total: [BMD (g/cm2):0.778] [T-score:-1.8] [Z-Score:-0.8] [BMD Previous:0.938] [BMD % Change:-17.1] *Indicates significant change from prior examination based on 95% confidence level. World Health Organization criteria for BMD interpretation classify patients as Normal (T-score at or above -1.0), Osteopenic (T-score between -1.0 and -2.5) or Osteoporotic (T-score at or below -2.5). LIMITATIONS AND MODIFICATION: None. FRACTURE RISK (FRAX SCORE): The ten year probability of (%): Major Osteoporotic Fracture: [10.2] Hip Fracture: [1.7] IMPRESSION: 1. Osteopenia (Low bone mass). 2. Bone mineral density has decreased by a statistically significant amount, as detailed above. 3. See below National Osteoporosis Foundation guidelines on when to potentially initiate pharmacologic therapy. Based on the National Osteoporosis Foundation Guidelines, pharmacologic treatment should be initiated in any of the following, unless clinical conditions suggest otherwise: * Any patient with prior fragility fracture of the hip or vertebrae. A spine fracture indicates 5X risk for subsequent spine fracture and 2X risk for subsequent hip fracture. * Osteoporosis (T-score <-2.5). * Postmenopausal women and men age 50 and older with low bone mass/osteopenia (T-score between -1.0 and -2.5) by DXA and 10-year major osteoporotic fracture greater than 20% or a 10-year probability of hip fracture greater than 3%. These fracture risks are supplied above in the FRAX score, if applicable. * Clinician judgement and/or patient preferences may indicate treatment for people with 10-year fracture probabilities above or below these levels. Dictated by: Dictated on workstation # [id number]
--- NOTE | 2021-10-29 13:18 | Diagnostic Imaging Report ---
INDICATION: Routine screening. COMPARISON: 11/14/2020 and 05/17/2020. TECHNIQUE: Unilateral left 2D and 3D screening mammography was performed with CAD. FINDINGS: The left breast is heterogeneously dense, limiting the sensitivity of mammography. Occasional benign calcifications are noted. No mass or malignant-appearing microcalcifications are seen. The left axilla is unremarkable. IMPRESSION: No mammographic features suspicious for malignancy are identified. ACR BI-RADS Category 2: Benign findings. Result letter will be mailed to the patient. Note: At least 10% of breast cancer is not imaged by mammography. Dictated by: Dictated on workstation # [id number]
== END ==
LOC: RAD 08:00
PROVIDERS: ATTEND Internal Medicine Hematology & Oncology
DX: Z13.820 Encounter for screening for osteoporosis (principal); Z12.31 Encounter for screening mammogram for malignant neoplasm of breast; M85.80 Other specified disorders of bone density and structure, unspecified site; Z79.811 Long term (current) use of aromatase inhibitors; Z85.3 Personal history of malignant neoplasm of breast; Z78.0 Asymptomatic menopausal state
CPT/HCPCS: 77063; 77080

== ENCOUNTER → 2022-10-30 | Outpatient (CLI) | payer MEDICARE ==
[~2022-10-30] MED LIST changes: +MONT-47 PO; -MONT10TA21 PO; -OLME40TA12 PO; +OLME40TA70 PO
--- NOTE | 2022-10-30 09:42 | Diagnostic Imaging Report ---
Indication: Routine screening. Comparison is made with prior mammograms from 10/29/2021 and 11/14/2020. 2-D and 3-D unilateral left screening mammography was performed with CAD. Left breast is heterogeneously dense, limiting the sensitivity of mammography. The parenchymal pattern is stable. No mass or malignant-appearing microcalcifications are seen. There are occasional benign calcifications. Left axilla is unremarkable. IMPRESSION: BI-RADS Category 2. No mammographic features suspicious for malignancy are identified. ACR BI-RADS Category 2: Benign findings. Result letter will be mailed to the patient. Note: At least 10% of breast cancer is not imaged by mammography. Dictated by: Dictated on workstation # [id number]
== END ==
LOC: RAD 07:43
PROVIDERS: ATTEND Internal Medicine Hematology & Oncology
DX: C50.211 Malignant neoplasm of upper-inner quadrant of right female breast (principal)
CPT/HCPCS: 77063